=== PATIENT | male | born 1950 | race Caucasian/White ===

== ENCOUNTER 2018-04-22 10:09 | Emergency (ER) | payer MEDICARE ==
--- NOTE | 2018-04-22 11:49 | UC ---
Hip/Pelvis Pain - HPI Summary HPI Summary: 67 y/o male presents to the urgent care c/o Left hip pain w/ B/l lower leg swelling for the past week. Pain is dull constant, 8/10 w/ radiation to the left thigh, worse upon standing and better w/ sitting. Pt reports Hx of 3 back surgeries in the past due spinal stenosis in 1979. He has been taking Ibuprofen PO prn to alleviate symptoms. Last dose taken around 1000AM. Pt usually walk w/ help of a cane due to his back surgeries. Pt c/o L hip pain, constant, dull, that started 1 week ago, unsure if any trauma to site. Also, c/o L leg swelling that started 1 week ago. More comfortable sitting. - History Of Current Complaint Chief Complaint: UCLowerExtremity Stated Complaint: L HIP PAIN Time Seen by Provider: 04/22/18 11:41 Hx Obtained From: Patient Onset/Duration: Gradual Onset, Lasting Weeks - 2 weeks, Still Present, Worse Since - last week Timing: Constant - dull aching Severity Initially: Mild Severity Currently: Moderate Pain Intensity: 8 Pain Scale Used: 0-10 Numeric Location: Discrete At: - left posterior side of hip, Radiates To: - lower left leg at times Character Of Pain: Dull Aggravating Factor(s): Weight Bearing, Other - walking Alleviating Factor(s): Rest, OTC Medications Associated Signs And Symptoms: Positive: Swelling - B/L leg swelling, Other - tinglin of lower foot at times. Negative: Redness, Bruising, Fever, Weakness, Dizziness, Abdominal Pain, Knee Pain - Risk Factors Septic Arthritis Risk Factor: Negative - Allergies/Home Medications Allergies/Adverse Reactions: Allergies Allergy/AdvReac Type Severity Reaction Status Date / Time No Known Allergies Allergy Verified 04/22/18 10:24 Home Medications: Home Medications Multivit-Min/Iron Fum/Folic AC [Multi Vitamin and Mineral] 1 tab PO DAILY [History Confirmed 04/22/18] PMH/Surg Hx/FS Hx/Imm Hx Previously Healthy: Yes Other Neurological History: Chronic back pain s/p 3 back surgeries - Surgical History Surgical History: Yes Surgery Procedure, Year, and Place: 3 back surgeries 1985,,89. R knee ACL reconstruction - Family History Known Family History: Positive: Hypertension - Social History Occupation: Retired Lives: With Family Alcohol Use: None Substance Use Type: None Smoking Status (MU): Heavy Every Day Tobacco Smoker Amount Used/How Often: 1/2-1PPD Review of Systems Constitutional: Negative Skin: Negative Eyes: Negative ENT: Negative Respiratory: Negative Cardiovascular: Negative Gastrointestinal: Negative Genitourinary: Negative Motor: Negative Neurovascular: Negative Musculoskeletal: Decreased ROM - hip, Edema - B/L lower leg LF>Rt, Other: - left hip pain Neurological: Negative Psychological: Negative Is Patient Immunocompromised?: No All Other Systems Reviewed And Are Negative: Yes Physical Exam - Summary Physical Exam Summary: Vital Signs Reviewed: Yes Appearance: Well-Appearing,well nourished male sitting in the wheel chair w/o any apparent pain Distress, Eyes: Positive: Conjunctiva Clear - left eye blindness ENT: Positive: Normal ENT inspection, Hearing grossly normal, Pharynx normal, TMs normal, Uvula midline Neck: Positive: Supple, Nontender, No Lymphadenopathy Respiratory: Positive: Chest non-tender, Lungs clear, Normal breath sounds, No respiratory distress Cardiovascular: Positive: RRR, No Murmur, Pulses Normal, Brisk Capillary Refill Abdomen Description: Positive: Nontender, No Organomegaly, Soft. Negative: CVA Tenderness (R), CVA Tenderness (L) Bowel Sounds: Positive: Present Musculoskeletal: Positive: Strength Intact, LF Hip: Pt is able to ambulate with mild limp, . No surface trauma, ecchymosis. No erythema, warmth. No deformity, crepitus, or obvious asymmetry of the LF hip. No Tenderness to palpation over the symphysis pubis, ischial bone, trochanter, SI notch, buttocks, quadriceps, femoral triangle, inguinal ligament. Point tenderness on Rt lateral side of the hip below the iliac crest. there is a movable mass probably w/ mild vascularization on the lateral side of the hip, non tender to palpation, No inguinal lymphadenopathy. FROM limited due to pain. Distal motor and neurovascular status are intact. Neuro: Alert and oriented x 3. No acute neurological deficits. Speech is normal. Psychological: WNL Skin: Dry and warm Triage Information Reviewed: Yes Vital Signs: Initial Vital Signs Temp 99.4 F 04/22/18 10:25 Pulse 75 04/22/18 10:25 Resp 18 04/22/18 10:25 BP 131/75 04/22/18 10:25 Pulse Ox 98 04/22/18 10:25 Hip Injury Course/Dx - Differential Dx/Diagnosis Differential Diagnosis/HQI/PQRI: Arthritis, Contusion, Sciatica, Sprain, Strain Provider Diagnoses: 1- Acute left hip pain. 2- B/L hip osteoarthritis and scraoilitis. 3- Soft tissue mass on the left hip. 4- Elevated BP w/o Hx of HTN Discharge - Sign-Out/Discharge Documenting (check all that apply): Patient Departure All imaging exams completed and their final reports reviewed: Yes - Discharge Plan Condition: Stable Disposition: HOME Prescriptions: Naproxen TAB* [Naprosyn 250 mg TAB*] 250 mg PO Q8H PRN #30 tab PRN Reason: Pain Patient Education Materials: Osteoarthritis (ED), Low-Sodium Diet (ED), Edema ( ED) Referrals: Alicia Bazan MD [Primary Care Provider] - 2 Days Susie Feng MD [Medical Doctor] - 2 Days Additional Instructions: 1- Please take Naproxen PO as directed after meals for pain. 2- . Avoid strenuous exercise or heavy lifting. 3- Please follow up with Orthopedic Dr Dr Feng in 2-3 days for further management on your hip pain. 4- Please f/u w/ your PCP for further management on you B/L leg edema and the left hip soft tissue mass. 5-Your BP is elevated today. please decrease salt in your diet, monitor BP and if it continues to be elevated please f/u with your PCP for further management - Billing Disposition and Condition Condition: STABLE Disposition: Home
[2018-04-22 12:42] VITALS: BP 146/74
--- NOTE | 2018-04-22 12:42 | RAD ---
INDICATION: Acute left hip pain. COMPARISON: There are no relevant prior studies available for comparison. TECHNIQUE: An AP view of the pelvis and frontal and lateral views of the left hip were obtained. FINDINGS: The bones are in normal alignment. No fracture is seen. There is mild to moderate bilateral osteoarthritic change in the hips. There is also sclerotic change in both sacroiliac joints right greater than left. IMPRESSION: 1. MILD TO MODERATE BILATERAL OSTEOARTHRITIC CHANGE IN THE HIPS. 2. BILATERAL SACROILIITIS.
== END 2018-04-22 13:04 | disposition home or self-care (01) ==
LOC: UCEAST 10:09
DX: M25.552 Pain in left hip (principal); M16.0 Bilateral primary osteoarthritis of hip; M46.1 Sacroiliitis, not elsewhere classified; M79.9 Soft tissue disorder, unspecified; R03.0 Elevated blood-pressure reading, without diagnosis of hypertension; F17.210 Nicotine dependence, cigarettes, uncomplicated
CPT/HCPCS: 99202; G0463

== ENCOUNTER 2021-09-18 16:23 | Inpatient (IN) ==
[2021-09-18 18:23] LABS: ABS Basophils 0.1 10^3/ul (0-0.2); ABS Lymphocytes 1.3 10^3/ul (1.0-4.8); ABS Monocytes 1.4 10^3/ul (0-0.8); ABS Neutrophils 9.4 10^3/ul (1.5-7.7); Eosinophil % 0.2 %; Hematocrit 24 % (42-52); Hemoglobin 8.1 g/dL (14.0-18.0); Lymphocyte % 10.4 %; Mean Corpuscular HGB Conc 34 g/dL (31-36); Mean Corpuscular Hemoglobin 28 pg (27-31); Mean Corpuscular Volume 81 fL (80-94); Mean Platelet Volume 7.3 fL (7.4-10.4); Platelet Count 536 10^3/uL (150-450); Red Blood Count 2.91 10^6 /uL (4.18-5.48); Red Cell Distribution Width 15 % (10-15); White Blood Count 12.1 10^3/uL (3.5-10.8)
[2021-09-18 19:06] LABS: Albumin 3.2 g/dL (3.2-5.2); Albumin/Globulin Ratio 1.1 (1-3); Calcium 8.6 mg/dL (8.6-10.3); Globulin 2.9 g/dL (2-4); Total Bilirubin 0.5 mg/dL (0.2-1.0); Total Protein 6.1 g/dL (6.4-8.9); eGFR CKD-EPI 29.9 (>60)
[2021-09-18 19:11] LABS: Potassium 6.4 mmol/L (3.5-5.0)
[2021-09-18] MEDS ORDERED: SODIUM ZIRCONIUM CYCLOSILICATE 10 GM PACKET PO ONE (20:07)
[2021-09-18] MEDS ORDERED: Dextrose 50% VIAL 50 ml IV PRN (20:07)
[2021-09-18 20:20] LABS: Urine Appearance Cloudy; Urine Bacteria Absent (Absent); Urine Bilirubin Negative (Negative); Urine Blood 2+ (Negative); Urine Glucose Negative (Negative); Urine Ketones Trace (Negative); Urine Nitrite Negative (Negative); Urine Protein 1+(30 mg/dL) (Negative); Urine Red Blood Cell 3+(>10/hpf) (Absent); Urine Specific Gravity 1.014 (1.002-1.030); Urine Urobilinogen Negative (Negative); Urine White Blood Cell Absent (Absent)
[2021-09-18 21:06] LABS: Urine Color Amber
[2021-09-18 23:50] LABS: Calcium 8.4 mg/dL (8.6-10.3); eGFR CKD-EPI 29.6 (>60)
[2021-09-18 23:52] LABS: Potassium 5.9 mmol/L (3.5-5.0)
[2021-09-19] MEDS ORDERED: NS 0.9% 100 ml BAG 100 ML IV ONE ×3 (00:13→04:13)
[2021-09-19 05:58] LABS: ABS Eosinophils 0.1 10^3/ul (0-0.6); ABS Lymphocytes 1.5 10^3/ul (1.0-4.8); ABS Monocytes 1.4 10^3/ul (0-0.8); ABS Neutrophils 7.6 10^3/ul (1.5-7.7); Eosinophil % 0.5 %; Hematocrit 23 % (42-52); Hemoglobin 7.6 g/dL (14.0-18.0); Mean Corpuscular HGB Conc 33 g/dL (31-36); Mean Corpuscular Hemoglobin 27 pg (27-31); Mean Corpuscular Volume 82 fL (80-94); Mean Platelet Volume 7.4 fL (7.4-10.4); Nucleated Red Blood Cells % 0.1; Platelet Count 506 10^3/uL (150-450); Red Blood Count 2.82 10^6 /uL (4.18-5.48); Red Cell Distribution Width 15 % (10-15); White Blood Count 10.6 10^3/uL (3.5-10.8)
[2021-09-19 06:19] LABS: Calcium 8.4 mg/dL (8.6-10.3); Magnesium 2.8 mg/dL (1.9-2.7); eGFR CKD-EPI 29.2 (>60)
[2021-09-19 06:31] LABS: Potassium 6.2 mmol/L (3.5-5.0)
[2021-09-19] MEDS ORDERED: SODIUM ZIRCONIUM CYCLOSILICATE 10 GM PACKET PO ONE (06:58)
[2021-09-19] MEDS ORDERED: NS 0.9% 250 ml 250 ML IV SCH (07:00)
[2021-09-19] MEDS ORDERED: Dextrose 50% Syringe 50 ml 25 GM/50 ML SYRINGE IV PUSH ONE (07:02)
[2021-09-19] MEDS ORDERED: CALCIUM GLUCONATE 1GM/50ML NS 1 GM/50 ML BAG IV ONE (07:57)
[2021-09-19] MEDS ORDERED: cefTRIAXone 1 gm/50 mL NS BAG 1 GM/50 ML BAG IVPB SCH (08:30)
[2021-09-19] MEDS ORDERED: NS 0.9% 1000 ml BAG 1,000 ML IV SCH ×2 (08:30→18:30)
[2021-09-19 08:31] LABS: C Reactive Protein 79.96 mg/L (<8.01)
[2021-09-19 09:17] LABS: Hematocrit 24 % (42-52); Hemoglobin 7.8 g/dL (14.0-18.0); Mean Corpuscular HGB Conc 33 g/dL (31-36); Mean Corpuscular Hemoglobin 27 pg (27-31); Mean Corpuscular Volume 81 fL (80-94); Mean Platelet Volume 7.2 fL (7.4-10.4); Platelet Count 507 10^3/uL (150-450); Red Blood Count 2.91 10^6 /uL (4.18-5.48); Red Cell Distribution Width 15 % (10-15); White Blood Count 10.5 10^3/uL (3.5-10.8)
[2021-09-19 09:25] LABS: INR 1.63 (0.86-1.15)
[2021-09-19 10:02] LABS: Calcium 8.4 mg/dL (8.6-10.3); eGFR CKD-EPI 32.3 (>60)
[2021-09-19 10:07] LABS: Potassium 5.2 mmol/L (3.5-5.0)
[2021-09-19 15:12] VITALS: BP 99/61
[2021-09-19] MEDS ORDERED: Albuterol 2.5mg/3 ml (0.083%) NEB.SOLN INH PRN (16:07)
[2021-09-19] MEDS ORDERED: Piperacillin/Tazobac ADVAN 3.375 GM in NS 0.9% 100 ml BAG 100 ML IV ONE (16:30)
[2021-09-19] MEDS ORDERED: Linezolid 600 MG IVPREMIX(*) 600 MG/300 ML BAG IVPB SCH (17:00)
[2021-09-19] MEDS ORDERED: Zosyn per Pharmacy NOTE FOLLOW UP SCH (17:00)
[2021-09-19] MEDS ORDERED: ZOSYN 3.375 GM Q8H per EXTENDED INFUSION IV SCH (22:00)
== END 2021-09-19 19:54 | disposition short-term general hospital (02) | DRG 316 ==
LOC: ED 16:23 → EDHOLD 22:19 → SUATTDRO 22:19 → MEDTELE 09-19 00:45
PROVIDERS: ADMIT Hospitalist; ATTEND Internal Medicine

== ENCOUNTER 2022-04-26 09:36 | Inpatient (IN) ==
[2022-04-26] MEDS ORDERED: NS 0.9% 1000 ml BAG 1,000 ML IV ONE (09:54)
[2022-04-26 10:15] LABS: ABS Basophils 0.1 10^3/ul (0-0.2); ABS Eosinophils 0.1 10^3/ul (0-0.6); ABS Monocytes 0.4 10^3/ul (0-0.8); ABS Neutrophils 9.7 10^3/ul (1.5-7.7); Eosinophil % 0.7 %; Hematocrit 34 % (42-52); Hemoglobin 10.5 g/dL (14.0-18.0); Lymphocyte % 9.1 %; Mean Corpuscular HGB Conc 31 g/dL (31-36); Mean Corpuscular Hemoglobin 29 pg (27-31); Mean Corpuscular Volume 94 fL (80-94); Mean Platelet Volume 8.6 fL (7.4-10.4); Platelet Count 225 10^3/uL (150-450); Red Blood Count 3.61 10^6 /uL (4.18-5.48); Red Cell Distribution Width 18 % (10-15); White Blood Count 11.3 10^3/uL (3.5-10.8)
[2022-04-26 10:16] LABS: Venous Bicarbonate HCO3 11.3 mmol/L (24-28)
[2022-04-26] MEDS: NORMOSOL-R pH 7.4 1000 mL BAG 1,000 ML IV SCH ×2 (10:18→11:55)
[2022-04-26] MEDS ORDERED: Insulin Infusion 100unit/100mL 100 UNIT/100 ML BAG IV ONE (10:42)
[2022-04-26] MEDS ORDERED: Dextrose 50% Syringe 50 ml 25 GM/50 ML SYRINGE IV PUSH PRN ×2 (10:42→11:29)
[2022-04-26] MEDS ORDERED: Piperacillin/Tazobac ADVAN 3.375 GM in NS 0.9% 100 ml BAG 100 ML IV ONE ×2 (10:44→16:26)
[2022-04-26 10:48] LABS: PCO2 Arterial 24 mmHg (35-45); PO2 Arterial 94 mmHg (80-100)
[2022-04-26] MEDS ORDERED: NORMOSOL-R pH 7.4 1000 mL BAG 1,000 ML IV SCH ×3 (11:00→14:17)
[2022-04-26 11:04] LABS: Albumin 3.5 g/dL (3.2-5.2); Albumin/Globulin Ratio 1.1 (1-3); Calcium 9.8 mg/dL (8.6-10.3); Globulin 3.2 g/dL (2-4); Magnesium 2.4 mg/dL (1.9-2.7); Total Bilirubin 0.5 mg/dL (0.2-1.0); Total Protein 6.7 g/dL (6.4-8.9)
[2022-04-26 11:10] LABS: Potassium 5.4 mmol/L (3.5-5.0)
[2022-04-26 11:17] LABS: Phosphorus 5.1 mg/dL (2.5-5.0)
[2022-04-26] MEDS ORDERED: NORMOSOL-R pH 7.4 1000 mL BAG 1,000 ML IV ONE (11:29)
[2022-04-26 11:31] LABS: TSH Ultra Thyroid Stim Horm 2.11 mcIU/mL (0.34-5.60)
[2022-04-26 11:45] LABS: Urine Appearance Turbid; Urine Bilirubin Negative (Negative); Urine Blood 2+ (Negative); Urine Color Yellow; Urine Glucose 3+(>=500 mg/dL) (Negative); Urine Ketones 1+ (Negative); Urine Nitrite Negative (Negative); Urine Protein 3+(>=500 mg/dL) (Negative); Urine Specific Gravity 1.018 (1.002-1.030); Urine Urobilinogen Negative (Negative)
[2022-04-26 11:57] LABS: Urine Bacteria 1+ (Absent); Urine Red Blood Cell 3+(>10/hpf) (Absent); Urine White Blood Cell 3+(>20/hpf) (Absent)
[2022-04-26] MEDS ORDERED: Insulin Infusion 100unit/100mL 100 UNIT/100 ML BAG IV SCH (12:00)
[2022-04-26] MEDS ORDERED: D5W 1/2 NS 1000 ml BAG 1,000 ML IV SCH (12:00)
[2022-04-26 12:41] LABS: High Sensitivity Troponin 1 Hr 11 pg/mL (<20)
[2022-04-26 13:00] LABS: Calcium 9.1 mg/dL (8.6-10.3); Magnesium 2.4 mg/dL (1.9-2.7); Phosphorus 5.1 mg/dL (2.5-5.0); eGFR CKD-EPI 35.4 (>60)
[2022-04-26 13:04] LABS: Potassium 5.7 mmol/L (3.5-5.0)
[2022-04-26] MEDS ORDERED: Albuterol 2.5mg/3 ml (0.083%) NEB.SOLN INH PRN (13:44)
[2022-04-26 14:38] LABS: Calcium 7.2 mg/dL (8.6-10.3); Magnesium 1.9 mg/dL (1.9-2.7); Phosphorus 3.6 mg/dL (2.5-5.0); Potassium 3.7 mmol/L (3.5-5.0); eGFR CKD-EPI 43.8 (>60)
[2022-04-26 14:48] LABS: Osmolality Serum 332 mOsm/kg (275-295)
[2022-04-26] MEDS ORDERED: KCL 10 MEQ/50 ML IVPREMIX 10 MEQ/50 ML BAG IV SCH (14:49)
[2022-04-26 14:55] LABS: Insulin 0.7 mcIU/mL (2.0-16.0)
[2022-04-26] MEDS ORDERED: KCL 20 MEQ/100 ML IVPREMIX 20 MEQ/100 ML BAG ONE (14:55)
[2022-04-26] MEDS ORDERED: KCL 20 MEQ/100 ML IVPREMIX 20 MEQ/100 ML BAG IV ONE (15:06)
[2022-04-26] MEDS: Norepinephrine 16MCG/ML BAGD5W 4,000 MCG/250 ML BAG IV SCH (15:08)
[2022-04-26 15:41] LABS: Glucose Confirmatory 425 mg/dL (70-100)
[2022-04-26] MEDS ORDERED: Zosyn per Pharmacy NOTE FOLLOW UP SCH (17:00)
[2022-04-26] MEDS: ZOSYN 3.375 GM Q8H per EXTENDED INFUSION IV SCH (17:23)
[2022-04-26] MEDS: D5W 1/2 NS 40 Meq KCL 1000 ml 1,000 ML IV SCH (17:53)
[2022-04-26 19:07] LABS: Magnesium 2.2 mg/dL (1.9-2.7); Potassium 4.8 mmol/L (3.5-5.0)
[2022-04-26 23:14] LABS: Calcium 8.9 mg/dL (8.6-10.3); Magnesium 2.2 mg/dL (1.9-2.7); Phosphorus 2.8 mg/dL (2.5-5.0); eGFR CKD-EPI 35.4 (>60)
[2022-04-27] MEDS: ZOSYN 3.375 GM Q8H per EXTENDED INFUSION IV SCH ×3 (01:33→18:23)
[2022-04-27] MEDS: Norepinephrine 16MCG/ML BAGD5W 4,000 MCG/250 ML BAG IV SCH (02:10)
[2022-04-27 03:48] LABS: ABS Eosinophils 0.5 10^3/ul (0-0.6); ABS Lymphocytes 1.3 10^3/ul (1.0-4.8); ABS Monocytes 0.7 10^3/ul (0-0.8); ABS Neutrophils 10.9 10^3/ul (1.5-7.7); Eosinophil % 3.9 %; Hematocrit 30 % (42-52); Hemoglobin 9.7 g/dL (14.0-18.0); Lymphocyte % 9.7 %; Mean Corpuscular HGB Conc 33 g/dL (31-36); Mean Corpuscular Hemoglobin 28 pg (27-31); Mean Corpuscular Volume 87 fL (80-94); Platelet Count 199 10^3/uL (150-450); Red Blood Count 3.43 10^6 /uL (4.18-5.48); Red Cell Distribution Width 18 % (10-15); White Blood Count 13.5 10^3/uL (3.5-10.8)
[2022-04-27] MEDS: D5W 1/2 NS 40 Meq KCL 1000 ml 1,000 ML IV SCH (04:09)
[2022-04-27 04:13] LABS: Albumin/Globulin Ratio 1.2 (1-3); Calcium 8.9 mg/dL (8.6-10.3); Globulin 2.6 g/dL (2-4); HDL Cholesterol 29.8 mg/dL; Magnesium 2.2 mg/dL (1.9-2.7); Phosphorus 2.6 mg/dL (2.5-5.0); Total Bilirubin 0.5 mg/dL (0.2-1.0); Total Protein 5.6 g/dL (6.4-8.9)
[2022-04-27 04:14] LABS: Potassium 5.2 mmol/L (3.5-5.0)
[2022-04-27 04:15] LABS: Potassium 5.2 mmol/L (3.5-5.0)
[2022-04-27] MEDS ORDERED: Insulin GLARGINE 100 un/ml 10 ml VIAL SUBCUT ONE ×2 (04:19→11:00)
[2022-04-27] MEDS: NORMOSOL-R pH 7.4 1000 mL BAG 1,000 ML IV SCH ×2 (04:45→14:51)
[2022-04-27] MEDS ORDERED: Dextrose 50% Syringe 50 ml 25 GM/50 ML SYRINGE IV PUSH PRN ×2 (05:44→11:01)
[2022-04-27] MEDS ORDERED: NORMOSOL-R pH 7.4 1000 mL BAG 1,000 ML IV ONE (11:45)
[2022-04-27] MEDS ORDERED: Norepinephrine 16MCG/ML BAGD5W 4,000 MCG/250 ML BAG IV SCH (12:00)
[2022-04-27] MEDS ORDERED: Perflutren Lipid Microsphere 3 ML VIAL ONE (14:25)
[2022-04-27] MEDS ORDERED: Insulin GLARGINE 100 un/ml 10 ml VIAL SUBCUT SCH ×3 (21:00)
[2022-04-28] MEDS: ZOSYN 3.375 GM Q8H per EXTENDED INFUSION IV SCH ×2 (00:52→09:18)
[2022-04-28] MEDS: NORMOSOL-R pH 7.4 1000 mL BAG 1,000 ML IV SCH (00:58)
[2022-04-28 03:46] LABS: ABS Eosinophils 0.3 10^3/ul (0-0.6); ABS Lymphocytes 1.3 10^3/ul (1.0-4.8); ABS Monocytes 0.6 10^3/ul (0-0.8); ABS Neutrophils 7.7 10^3/ul (1.5-7.7); Eosinophil % 2.6 %; Hematocrit 28 % (42-52); Lymphocyte % 13.2 %; Mean Corpuscular HGB Conc 32 g/dL (31-36); Mean Corpuscular Hemoglobin 28 pg (27-31); Mean Corpuscular Volume 87 fL (80-94); Mean Platelet Volume 7.7 fL (7.4-10.4); Platelet Count 176 10^3/uL (150-450); Red Blood Count 3.21 10^6 /uL (4.18-5.48); Red Cell Distribution Width 18 % (10-15); White Blood Count 9.8 10^3/uL (3.5-10.8)
[2022-04-28 04:22] LABS: Albumin 2.7 g/dL (3.2-5.2); Calcium 8.6 mg/dL (8.6-10.3); Potassium 4.1 mmol/L (3.5-5.0); Total Bilirubin 0.4 mg/dL (0.2-1.0)
[2022-04-28 04:28] LABS: Albumin/Globulin Ratio 1.2 (1-3); C Reactive Protein 43.35 mg/L (<8.01); Globulin 2.3 g/dL (2-4); eGFR CKD-EPI 52.1 (>60)
[2022-04-28] MEDS ORDERED: Insulin GLARGINE 100 un/ml 10 ml VIAL SUBCUT SCH (09:00)
[2022-04-28] MEDS ORDERED: Metoprolol Tartrate 5 mg VIAL 5 ml VIAL (1 mg/ml) IV PRN (19:03)
[2022-04-29 05:31] LABS: ABS Eosinophils 0.4 10^3/ul (0-0.6); ABS Lymphocytes 1.2 10^3/ul (1.0-4.8); ABS Monocytes 0.6 10^3/ul (0-0.8); ABS Neutrophils 5.7 10^3/ul (1.5-7.7); Eosinophil % 4.6 %; Hematocrit 27 % (42-52); Hemoglobin 8.9 g/dL (14.0-18.0); Lymphocyte % 15.5 %; Mean Corpuscular HGB Conc 33 g/dL (31-36); Mean Corpuscular Hemoglobin 29 pg (27-31); Mean Corpuscular Volume 88 fL (80-94); Mean Platelet Volume 7.8 fL (7.4-10.4); Platelet Count 159 10^3/uL (150-450); Red Blood Count 3.08 10^6 /uL (4.18-5.48); Red Cell Distribution Width 18 % (10-15); White Blood Count 7.8 10^3/uL (3.5-10.8)
[2022-04-29 06:05] LABS: Albumin 2.6 g/dL (3.2-5.2); CO2 Carbon Dioxide 26 mmol/L (22-32); Calcium 8.6 mg/dL (8.6-10.3); Chloride 106 mmol/L (101-111); Sodium 136 mmol/L (135-145)
[2022-04-29 06:11] LABS: ALT 9 U/L (7-52); Alkaline Phosphatase 79 U/L (35-149); Blood Urea Nitrogen 17 mg/dL (6-24); Globulin 2.5 g/dL (2-4); Glucose 72 mg/dL (70-100); Total Protein 5.1 g/dL (6.4-8.9); eGFR CKD-EPI 56.3 (>60)
[2022-04-29 06:15] LABS: Anion Gap 4 mmol/L (2-11)
[2022-04-29 07:27] LABS: Potassium Redraw 4.3 mmol/L (3.5-5.0)
[2022-04-29] MEDS ORDERED: Metoprolol Tartrate 5 mg VIAL 5 ml VIAL (1 mg/ml) IV PRN (07:29)
[2022-04-29] MEDS: Insulin GLARGINE 100 un/ml 10 ml VIAL SUBCUT SCH (09:25)
[2022-04-29] MEDS ORDERED: Dextrose 50% Syringe 50 ml 25 GM/50 ML SYRINGE IV PUSH PRN (13:30)
[2022-04-30] MEDS ORDERED: Nystatin TOP POWDER 15 GM BTL TOPICAL SCH (09:00)
[2022-04-30] MEDS: Insulin GLARGINE 100 un/ml 10 ml VIAL SUBCUT SCH (09:09)
[2022-04-30 11:31] VITALS: BP 107/71
[2022-05-04 08:48] LABS: Anti GAD 65 Antibody 0.15 nmol/L (<= 0.02); Zinc Transporter 8 (ZnT8) Ab 17.3 U/mL (<15.0)
== END 2022-04-30 16:00 | disposition home or self-care (01) | DRG 637 ==
LOC: ED 09:36 → EDHOLD 11:24 → ICU 14:44 → MED 04-29 22:25
PROVIDERS: ADMIT Internal Medicine; ATTEND Internal Medicine

== ENCOUNTER 2022-05-02 07:14 | Inpatient (IN) ==
[2022-05-02] MEDS ORDERED: MULTIPLE ELECTROLYTES IV ONE (07:34)
[2022-05-02] MEDS ORDERED: Piperacillin/Tazobac ADVAN 3.375 GM in NS 0.9% 100 ml BAG 100 ML IV ONE (07:34)
[2022-05-02] MEDS ORDERED: Dextrose 50% Syringe 50 ml 25 GM/50 ML SYRINGE IV PUSH PRN ×2 (07:46→08:38)
[2022-05-02] MEDS ORDERED: Insulin Infusion 100unit/100mL 100 UNIT/100 ML BAG IV ONE (07:46)
[2022-05-02 08:09] LABS: ABS Eosinophils 0.1 10^3/ul (0-0.6); ABS Lymphocytes 0.9 10^3/ul (1.0-4.8); ABS Monocytes 0.4 10^3/ul (0-0.8); ABS Neutrophils 6.7 10^3/ul (1.5-7.7); Eosinophil % 0.9 %; Hematocrit 31 % (42-52); Hemoglobin 9.5 g/dL (14.0-18.0); Lymphocyte % 11.4 %; Mean Corpuscular HGB Conc 31 g/dL (31-36); Mean Corpuscular Hemoglobin 29 pg (27-31); Mean Corpuscular Volume 95 fL (80-94); Mean Platelet Volume 8.4 fL (7.4-10.4); Platelet Count 238 10^3/uL (150-450); Red Blood Count 3.23 10^6 /uL (4.18-5.48); Red Cell Distribution Width 18 % (10-15); White Blood Count 8.2 10^3/uL (3.5-10.8)
[2022-05-02 08:09] LABS: Venous Bicarbonate HCO3 10.8 mmol/L (24-28)
[2022-05-02] MEDS ORDERED: NORMOSOL-R pH 7.4 1000 mL BAG 1,000 ML IV ONE ×2 (08:38→08:55)
[2022-05-02 08:39] LABS: Urine Appearance Turbid; Urine Bilirubin Negative (Negative); Urine Blood 3+ (Negative); Urine Color Yellow; Urine Glucose 3+(>=500 mg/dL) (Negative); Urine Ketones 2+ (Negative); Urine Nitrite Negative (Negative); Urine Protein 3+(>=500 mg/dL) (Negative); Urine Specific Gravity 1.017 (1.002-1.030); Urine Urobilinogen Negative (Negative)
[2022-05-02 08:40] LABS: Activated Partial Thrombo Time 36.6 seconds (26.0-38.0); INR 1.84 (0.89-1.11)
[2022-05-02 08:53] LABS: Albumin 2.9 g/dL (3.2-5.2); C Reactive Protein 97.31 mg/L (<8.01); Calcium 9.2 mg/dL (8.6-10.3); Globulin 2.9 g/dL (2-4); Total Bilirubin 0.4 mg/dL (0.2-1.0); Total Protein 5.8 g/dL (6.4-8.9); eGFR CKD-EPI 37.5 (>60)
[2022-05-02 08:56] LABS: Urine Bacteria Absent (Absent); Urine Granular Casts Present (Absent); Urine Red Blood Cell 3+(>10/hpf) (Absent); Urine White Blood Cell 3+(>20/hpf) (Absent)
[2022-05-02 08:59] LABS: Potassium 5.4 mmol/L (3.5-5.0)
[2022-05-02] MEDS ORDERED: Norepinephrine 16MCG/ML BAG NS 4,000 MCG/250 ML BAG IV SCH ×2 (09:00)
[2022-05-02] MEDS: NORMOSOL-R pH 7.4 1000 mL BAG 1,000 ML IV SCH ×3 (10:22→21:33)
[2022-05-02] MEDS: Insulin Infusion 100unit/100mL 100 UNIT/100 ML BAG IV SCH ×2 (10:49→18:44)
[2022-05-02] MEDS ORDERED: Zosyn per Pharmacy NOTE FOLLOW UP SCH (11:00)
[2022-05-02 12:27] LABS: ABS Lymphocytes 0.4 10^3/ul (1.0-4.8); ABS Monocytes 0.2 10^3/ul (0-0.8); ABS Neutrophils 6.4 10^3/ul (1.5-7.7); Eosinophil % 0.1 %; Hematocrit 29 % (42-52); Hemoglobin 9.2 g/dL (14.0-18.0); Lymphocyte % 5.3 %; Mean Corpuscular HGB Conc 31 g/dL (31-36); Mean Corpuscular Hemoglobin 28 pg (27-31); Mean Corpuscular Volume 91 fL (80-94); Mean Platelet Volume 7.9 fL (7.4-10.4); Platelet Count 232 10^3/uL (150-450); Red Blood Count 3.24 10^6 /uL (4.18-5.48); Red Cell Distribution Width 18 % (10-15)
[2022-05-02] MEDS: ZOSYN 3.375 GM Q8H per EXTENDED INFUSION IV SCH ×2 (12:32→19:56)
[2022-05-02 13:07] LABS: Calcium 8.4 mg/dL (8.6-10.3); Phosphorus 3.6 mg/dL (2.5-5.0); Potassium 4.5 mmol/L (3.5-5.0); eGFR CKD-EPI 39.5 (>60)
[2022-05-02 13:40] LABS: Glucose Confirmatory 497 mg/dL (70-100)
[2022-05-02 13:56] LABS: TSH Ultra Thyroid Stim Horm 1.23 mcIU/mL (0.34-5.60)
[2022-05-02] MEDS ORDERED: Albuterol 2.5mg/3 ml (0.083%) NEB.SOLN INH PRN (14:21)
[2022-05-02 14:33] LABS: Glucose Confirmatory 462 mg/dL (70-100)
[2022-05-02 15:28] LABS: Glucose Confirmatory 420 mg/dL (70-100)
[2022-05-02 17:03] LABS: Calcium 8.3 mg/dL (8.6-10.3); Magnesium 1.9 mg/dL (1.9-2.7); Phosphorus 2.8 mg/dL (2.5-5.0); Potassium 4.2 mmol/L (3.5-5.0); eGFR CKD-EPI 44.5 (>60)
[2022-05-02 21:00] LABS: Calcium 8.5 mg/dL (8.6-10.3); Magnesium 1.9 mg/dL (1.9-2.7); Phosphorus 2.4 mg/dL (2.5-5.0); Potassium 3.9 mmol/L (3.5-5.0); eGFR CKD-EPI 46.2 (>60)
[2022-05-02] MEDS ORDERED: Insulin GLARGINE 100 un/ml 10 ml VIAL SUBCUT ONE (21:20)
[2022-05-03 00:54] LABS: Urine Appearance Cloudy; Urine Bilirubin Negative (Negative); Urine Blood 3+ (Negative); Urine Color Yellow; Urine Glucose 3+(>=500 mg/dL) (Negative); Urine Ketones 1+ (Negative); Urine Nitrite Negative (Negative); Urine Protein 2+(100 mg/dL) (Negative); Urine Specific Gravity 1.013 (1.002-1.030); Urine Urobilinogen Negative (Negative)
[2022-05-03 00:58] LABS: Urine Bacteria Absent (Absent); Urine Red Blood Cell 3+(>10/hpf) (Absent); Urine White Blood Cell 3+(>20/hpf) (Absent)
[2022-05-03 01:36] LABS: Calcium 8.7 mg/dL (8.6-10.3); Potassium 4.5 mmol/L (3.5-5.0); eGFR CKD-EPI 47.6 (>60)
[2022-05-03] MEDS: ZOSYN 3.375 GM Q8H per EXTENDED INFUSION IV SCH ×3 (03:35→20:08)
[2022-05-03] MEDS: NORMOSOL-R pH 7.4 1000 mL BAG 1,000 ML IV SCH (04:21)
[2022-05-03 05:04] LABS: Calcium 8.3 mg/dL (8.6-10.3); Magnesium 1.9 mg/dL (1.9-2.7); Phosphorus 2.9 mg/dL (2.5-5.0); Potassium 4.2 mmol/L (3.5-5.0); eGFR CKD-EPI 49.2 (>60)
[2022-05-03] MEDS: Polyethylene Glycol 3350 17 GM PACKET PO SCH (07:31)
[2022-05-03 09:49] LABS: Calcium 8.3 mg/dL (8.6-10.3); Magnesium 1.9 mg/dL (1.9-2.7); Phosphorus 2.7 mg/dL (2.5-5.0); Potassium 4.1 mmol/L (3.5-5.0); eGFR CKD-EPI 51.6 (>60)
[2022-05-03] MEDS ORDERED: Lactated Ringers 500 ml BAG 500 ML IV ONE (13:46)
[2022-05-03] MEDS ORDERED: Lactated Ringers 500 ml BAG 500 ML IV SCH (15:00)
[2022-05-03] MEDS: Lactated Ringers 1000 ml BAG 1,000 ML IV SCH (18:00)
[2022-05-03] MEDS ORDERED: Insulin GLARGINE 100 un/ml 10 ml VIAL SUBCUT SCH ×2 (21:00)
[2022-05-04] MEDS: ZOSYN 3.375 GM Q8H per EXTENDED INFUSION IV SCH (03:23)
[2022-05-04] MEDS: Lactated Ringers 1000 ml BAG 1,000 ML IV SCH ×2 (05:27→19:30)
[2022-05-04] MEDS: Polyethylene Glycol 3350 17 GM PACKET PO SCH (08:25)
[2022-05-04 09:18] LABS: Urine Appearance Turbid; Urine Bilirubin Negative (Negative); Urine Blood 2+ (Negative); Urine Color Yellow; Urine Glucose Negative (Negative); Urine Ketones Negative (Negative); Urine Nitrite Negative (Negative); Urine Protein 2+(100 mg/dL) (Negative); Urine Urobilinogen Negative (Negative)
[2022-05-04 09:39] LABS: ABS Eosinophils 0.3 10^3/ul (0-0.6); ABS Monocytes 0.5 10^3/ul (0-0.8); ABS Neutrophils 5.1 10^3/ul (1.5-7.7); Eosinophil % 4.9 %; Hematocrit 27 % (42-52); Lymphocyte % 14.8 %; Mean Corpuscular HGB Conc 33 g/dL (31-36); Mean Corpuscular Hemoglobin 29 pg (27-31); Mean Corpuscular Volume 87 fL (80-94); Mean Platelet Volume 7.6 fL (7.4-10.4); Platelet Count 222 10^3/uL (150-450); Red Blood Count 3.12 10^6 /uL (4.18-5.48); Red Cell Distribution Width 18 % (10-15); White Blood Count 7.1 10^3/uL (3.5-10.8)
[2022-05-04 09:40] LABS: Urine Bacteria 1+ (Absent); Urine Red Blood Cell 3+(>10/hpf) (Absent); Urine Squamous Epithelial Cell Present (Absent); Urine White Blood Cell 3+(>20/hpf) (Absent)
[2022-05-04 10:26] LABS: Calcium 8.2 mg/dL (8.6-10.3); Magnesium 1.8 mg/dL (1.9-2.7); Phosphorus 2.9 mg/dL (2.5-5.0); Potassium 4.1 mmol/L (3.5-5.0)
[2022-05-04] MEDS ORDERED: Dextrose 50% Syringe 50 ml 25 GM/50 ML SYRINGE IV PUSH PRN (12:07)
[2022-05-04] MEDS ORDERED: Piperacillin/Tazobac ADVAN 3.375 GM in NS 0.9% 100 ml BAG 100 ML IV ONE (12:16)
[2022-05-04] MEDS ORDERED: Magnesium Sulfate 2 gm BAG 2 GM/50 ML BAG IVPB ONE (13:07)
[2022-05-04] MEDS ORDERED: Insulin GLARGINE 100 un/ml 10 ml VIAL SUBCUT SCH ×3 (21:00)
[2022-05-05] MEDS: Polyethylene Glycol 3350 17 GM PACKET PO SCH ×2 (09:21→09:24)
[2022-05-05] MEDS: Lactated Ringers 1000 ml BAG 1,000 ML IV SCH (09:22)
[2022-05-05] MEDS ORDERED: Insulin GLARGINE 100 un/ml 10 ml VIAL SUBCUT SCH (21:00)
[2022-05-06 05:32] LABS: ABS Eosinophils 0.3 10^3/ul (0-0.6); ABS Lymphocytes 1.3 10^3/ul (1.0-4.8); ABS Monocytes 0.5 10^3/ul (0-0.8); ABS Neutrophils 3.5 10^3/ul (1.5-7.7); Eosinophil % 4.9 %; Hematocrit 25 % (42-52); Hemoglobin 8.3 g/dL (14.0-18.0); Lymphocyte % 23.5 %; Mean Corpuscular HGB Conc 34 g/dL (31-36); Mean Corpuscular Hemoglobin 30 pg (27-31); Mean Corpuscular Volume 88 fL (80-94); Mean Platelet Volume 7.7 fL (7.4-10.4); Platelet Count 230 10^3/uL (150-450); Red Blood Count 2.79 10^6 /uL (4.18-5.48); Red Cell Distribution Width 18 % (10-15); White Blood Count 5.7 10^3/uL (3.5-10.8)
[2022-05-06 06:23] LABS: Calcium 8.1 mg/dL (8.6-10.3); Potassium 4.5 mmol/L (3.5-5.0); eGFR CKD-EPI 47.6 (>60)
[2022-05-06] MEDS: Polyethylene Glycol 3350 17 GM PACKET PO SCH (08:47)
[2022-05-06 11:20] VITALS: BP 111/61
== END 2022-05-06 14:41 | disposition home or self-care (01) | DRG 871 ==
LOC: ED 07:14 → EDHOLD 08:31 → ICU 11:35
PROVIDERS: ADMIT Internal Medicine Critical Care Medicine; ATTEND Internal Medicine Critical Care Medicine

== ENCOUNTER 2022-06-28 18:27 | Inpatient (IN) ==
[2022-06-28 19:51] LABS: Urine Appearance Turbid; Urine Color Yellow
[2022-06-28 20:06] LABS: Urine Bilirubin Negative (Negative); Urine Blood 3+ (Large) (Negative); Urine Glucose Trace (100mg/dL) (Negative); Urine Ketones Negative (Negative); Urine Nitrite Negative (Negative); Urine Protein 2+ (100 mg/dL) (Negative); Urine Urobilinogen 0.2 (Negative) (Negative); Urine pH 5.5 (5.0-9.0)
[2022-06-28 20:16] LABS: Urine Bacteria Absent (Absent); Urine Red Blood Cell 3+(>10/hpf) (Absent); Urine White Blood Cell 3+(>20/hpf) (Absent); Urine Yeast Present (Absent)
[2022-06-28] MEDS ORDERED: NS 0.9% 1000 ml BAG 1,000 ML IV ONE ×2 (21:45→22:56)
[2022-06-28] MEDS ORDERED: cefTRIAXone 1 gm/50 mL D5W 1 GM/50 ML BAG IV ONE (21:45)
[2022-06-28 22:17] LABS: ABS Monocytes 1.3 10^3/ul (0-0.8); ABS Neutrophils 11.2 10^3/ul (1.5-7.7); Hematocrit 28 % (42-52); Hemoglobin 8.9 g/dL (14.0-18.0); Lymphocyte % 7.3 %; Mean Corpuscular HGB Conc 32 g/dL (31-36); Mean Corpuscular Hemoglobin 26 pg (27-31); Mean Corpuscular Volume 79 fL (80-94); Mean Platelet Volume 7.5 fL (7.4-10.4); Platelet Count 265 10^3/uL (150-450); Red Blood Count 3.48 10^6 /uL (4.18-5.48); Red Cell Distribution Width 19 % (10-15); White Blood Count 13.5 10^3/uL (3.5-10.8)
[2022-06-28 22:41] LABS: Albumin 2.9 g/dL (3.2-5.2); Albumin/Globulin Ratio 0.9 (1-3); Calcium 8.3 mg/dL (8.6-10.3); Globulin 3.1 g/dL (2-4); Total Bilirubin 0.7 mg/dL (0.2-1.0); eGFR CKD-EPI 26.5 (>60)
[2022-06-28 22:54] LABS: Potassium 5.4 mmol/L (3.5-5.0)
[2022-06-29] MEDS ORDERED: Albuterol/Ipratropium NEB.SOL (2.5/0.5 MG) 3 ML NEB.SOLN INH PRN (03:33)
[2022-06-29] MEDS ORDERED: SODIUM ZIRCONIUM CYCLOSILICATE 5 GM PACKET PO ONE (03:57)
[2022-06-29] MEDS ORDERED: Dextrose 50% Syringe 50 ml 25 GM/50 ML SYRINGE IV PUSH PRN (04:01)
[2022-06-29 04:07] LABS: Osmolality Serum 278 mOsm/kg (275-295)
[2022-06-29 04:37] LABS: ABS Lymphocytes 0.6 10^3/ul (1.0-4.8); ABS Monocytes 1.3 10^3/ul (0-0.8); ABS Neutrophils 10.9 10^3/ul (1.5-7.7); Hematocrit 26 % (42-52); Hemoglobin 8.6 g/dL (14.0-18.0); Lymphocyte % 4.3 %; Mean Corpuscular HGB Conc 33 g/dL (31-36); Mean Corpuscular Hemoglobin 26 pg (27-31); Mean Corpuscular Volume 79 fL (80-94); Mean Platelet Volume 7.4 fL (7.4-10.4); Platelet Count 243 10^3/uL (150-450); Red Blood Count 3.32 10^6 /uL (4.18-5.48); Red Cell Distribution Width 18 % (10-15); White Blood Count 12.8 10^3/uL (3.5-10.8)
[2022-06-29 04:58] LABS: Calcium 8.1 mg/dL (8.6-10.3); Potassium 5.6 mmol/L (3.5-5.0); eGFR CKD-EPI 27.6 (>60)
[2022-06-29] MEDS ORDERED: NS 0.9% 1000 ml BAG 1,000 ML IV ONE ×2 (08:14→16:01)
[2022-06-29] MEDS ORDERED: Insulin GLARGINE 100 un/ml 10 ml VIAL SUBCUT SCH ×2 (09:00→21:00)
[2022-06-29] MEDS: Polyethylene Glycol 3350 17 GM PACKET PO SCH (09:24)
[2022-06-29 10:55] LABS: Urine Osmo 334 mOsm/kg (150-1150)
[2022-06-29 15:44] LABS: Calcium 8.2 mg/dL (8.6-10.3); Potassium 5.3 mmol/L (3.5-5.0); eGFR CKD-EPI 28.5 (>60)
[2022-06-29] MEDS ORDERED: Piperacillin/Tazobac ADVAN 3.375 GM in NS 0.9% 100 ml BAG 100 ML IV ONE (15:59)
[2022-06-29] MEDS ORDERED: Zosyn per Pharmacy NOTE FOLLOW UP SCH (16:00)
[2022-06-29 16:25] LABS: PCO2 Arterial 28 mmHg (35-45); PO2 Arterial 88 mmHg (80-100)
[2022-06-29] MEDS ORDERED: Vancomycin per Pharmacy 1 EA NOTE FOLLOW UP PRN (17:33)
[2022-06-29 17:56] LABS: Osmolality Serum 290 mOsm/kg (275-295)
[2022-06-29] MEDS ORDERED: Vancomycin 750 MG in NS 0.9% 250 ml 250 ML IVPB SCH (18:00)
[2022-06-29] MEDS ORDERED: Vancomycin 1,500 MG in NS 0.9% 250 ml 250 ML IVPB ONE (18:00)
[2022-06-29] MEDS ORDERED: cefTRIAXone 1 gm/50 mL D5W 1 GM/50 ML BAG IV SCH (21:00)
[2022-06-29] MEDS: ZOSYN 3.375 GM Q8H per EXTENDED INFUSION IV SCH (23:40)
[2022-06-30 02:49] LABS: ABS Lymphocytes 0.7 10^3/ul (1.0-4.8); ABS Monocytes 1.1 10^3/ul (0-0.8); ABS Neutrophils 9.5 10^3/ul (1.5-7.7); Eosinophil % 0.1 %; Hematocrit 24 % (42-52); Lymphocyte % 6.4 %; Mean Corpuscular HGB Conc 33 g/dL (31-36); Mean Corpuscular Hemoglobin 26 pg (27-31); Mean Corpuscular Volume 79 fL (80-94); Mean Platelet Volume 7.6 fL (7.4-10.4); Platelet Count 240 10^3/uL (150-450); Red Blood Count 3.11 10^6 /uL (4.18-5.48); Red Cell Distribution Width 18 % (10-15); White Blood Count 11.4 10^3/uL (3.5-10.8)
[2022-06-30 03:09] LABS: Anion Gap 8 mmol/L (2-11); Blood Urea Nitrogen 41 mg/dL (6-24); CO2 Carbon Dioxide 19 mmol/L (22-32); Calcium 7.7 mg/dL (8.6-10.3); Chloride 97 mmol/L (101-111); Glucose 189 mg/dL (70-100); Potassium 4.7 mmol/L (3.5-5.0); Sodium 124 mmol/L (135-145); eGFR CKD-EPI 31.4 (>60)
[2022-06-30 03:12] LABS: CRP High Sensitivity > 80.00 mg/L (<2.00)
[2022-06-30] MEDS: ZOSYN 3.375 GM Q8H per EXTENDED INFUSION IV SCH ×3 (04:24→23:34)
[2022-06-30 06:05] LABS: ABS Lymphocytes 1.1 10^3/ul (1.0-4.8); ABS Monocytes 1.2 10^3/ul (0-0.8); ABS Neutrophils 8.8 10^3/ul (1.5-7.7); Eosinophil % 0.3 %; Hematocrit 26 % (42-52); Hemoglobin 8.6 g/dL (14.0-18.0); Lymphocyte % 10.1 %; Mean Corpuscular HGB Conc 33 g/dL (31-36); Mean Corpuscular Hemoglobin 26 pg (27-31); Mean Corpuscular Volume 79 fL (80-94); Mean Platelet Volume 7.5 fL (7.4-10.4); Platelet Count 234 10^3/uL (150-450); Red Blood Count 3.29 10^6 /uL (4.18-5.48); Red Cell Distribution Width 19 % (10-15); White Blood Count 11.2 10^3/uL (3.5-10.8)
[2022-06-30 06:51] LABS: Potassium 4.8 mmol/L (3.5-5.0); eGFR CKD-EPI 31.7 (>60)
[2022-06-30] MEDS ORDERED: Potassium Chlor 20 meq TAB.ER PO SCH (09:00)
[2022-06-30] MEDS ORDERED: Insulin GLARGINE 100 un/ml 10 ml VIAL SUBCUT SCH (09:00)
[2022-06-30] MEDS ORDERED: Vancomycin Random Level NOTE FOLLOW UP ONE (09:00)
[2022-06-30] MEDS: Polyethylene Glycol 3350 17 GM PACKET PO SCH (09:07)
[2022-06-30] MEDS ORDERED: Lactated Ringers 1000 ml BAG 1,000 ML IV ONE (11:15)
[2022-06-30] MEDS ORDERED: Dextrose 50% Syringe 50 ml 25 GM/50 ML SYRINGE IV PUSH PRN (13:41)
[2022-06-30] MEDS ORDERED: Lactated Ringers 1000 ml BAG 500 ML IV ONE (17:48)
[2022-06-30] MEDS ORDERED: Vancomycin 750 MG in NS 0.9% 250 ML IVPB ONE (21:00)
[2022-07-01] MEDS: ZOSYN 3.375 GM Q8H per EXTENDED INFUSION IV SCH (05:03)
[2022-07-01 05:16] LABS: ABS Eosinophils 0.3 10^3/ul (0-0.6); ABS Lymphocytes 1.2 10^3/ul (1.0-4.8); ABS Monocytes 1.1 10^3/ul (0-0.8); ABS Neutrophils 7.2 10^3/ul (1.5-7.7); Eosinophil % 2.8 %; Hematocrit 26 % (42-52); Hemoglobin 8.5 g/dL (14.0-18.0); Lymphocyte % 11.9 %; Mean Corpuscular HGB Conc 33 g/dL (31-36); Mean Corpuscular Hemoglobin 26 pg (27-31); Mean Corpuscular Volume 79 fL (80-94); Mean Platelet Volume 7.5 fL (7.4-10.4); Platelet Count 256 10^3/uL (150-450); Red Blood Count 3.33 10^6 /uL (4.18-5.48); Red Cell Distribution Width 18 % (10-15); White Blood Count 9.7 10^3/uL (3.5-10.8)
[2022-07-01] MEDS ORDERED: Vancomycin Random Level NOTE FOLLOW UP ONE (06:00)
[2022-07-01 06:10] LABS: Calcium 7.8 mg/dL (8.6-10.3); Potassium 4.6 mmol/L (3.5-5.0); Vancomycin Random 12.4 mcg/mL; eGFR CKD-EPI 34.8 (>60)
[2022-07-01] MEDS ORDERED: Insulin GLARGINE 100 un/ml 10 ml VIAL SUBCUT SCH ×3 (09:00→22:00)
[2022-07-01] MEDS: Polyethylene Glycol 3350 17 GM PACKET PO SCH (09:31)
[2022-07-01] MEDS ORDERED: Cefepime ADVAN 1 GM in NS 0.9% 50 ML 50 ML IVPB SCH (12:00)
[2022-07-01 12:41] LABS: Glucose Confirmatory 447 mg/dL (70-100)
[2022-07-01] MEDS ORDERED: Dextrose 50% Syringe 50 ml 25 GM/50 ML SYRINGE IV PUSH PRN ×2 (12:54→15:28)
[2022-07-01] MEDS: Cefepime 1 GM in Dextrose 1 GM/50 ML BAG IV SCH (13:30)
[2022-07-01] MEDS ORDERED: Insulin GLARGINE 100 un/ml 10 ml VIAL SUBCUT ONE (22:43)
[2022-07-02] MEDS: Cefepime 1 GM in Dextrose 1 GM/50 ML BAG IV SCH ×2 (00:35→13:08)
[2022-07-02 06:17] LABS: ABS Eosinophils 0.5 10^3/ul (0-0.6); ABS Lymphocytes 1.8 10^3/ul (1.0-4.8); ABS Neutrophils 6.2 10^3/ul (1.5-7.7); Eosinophil % 4.8 %; Hematocrit 26 % (42-52); Hemoglobin 8.6 g/dL (14.0-18.0); Lymphocyte % 18.7 %; Mean Corpuscular HGB Conc 33 g/dL (31-36); Mean Corpuscular Hemoglobin 26 pg (27-31); Mean Corpuscular Volume 79 fL (80-94); Mean Platelet Volume 7.8 fL (7.4-10.4); Platelet Count 282 10^3/uL (150-450); Red Blood Count 3.32 10^6 /uL (4.18-5.48); Red Cell Distribution Width 18 % (10-15); White Blood Count 9.4 10^3/uL (3.5-10.8)
[2022-07-02 06:50] LABS: Potassium 4.4 mmol/L (3.5-5.0); eGFR CKD-EPI 48.8 (>60)
[2022-07-02] MEDS: Polyethylene Glycol 3350 17 GM PACKET PO SCH (09:38)
[2022-07-02] MEDS ORDERED: Insulin GLARGINE 100 un/ml 10 ml VIAL SUBCUT SCH (21:00)
[2022-07-03] MEDS: Cefepime 1 GM in Dextrose 1 GM/50 ML BAG IV SCH ×2 (00:54→14:11)
[2022-07-03 06:56] LABS: ABS Eosinophils 0.5 10^3/ul (0-0.6); ABS Lymphocytes 1.4 10^3/ul (1.0-4.8); ABS Monocytes 0.9 10^3/ul (0-0.8); ABS Neutrophils 5.2 10^3/ul (1.5-7.7); Eosinophil % 6.5 %; Hematocrit 25 % (42-52); Hemoglobin 8.4 g/dL (14.0-18.0); Lymphocyte % 17.8 %; Mean Corpuscular HGB Conc 33 g/dL (31-36); Mean Corpuscular Hemoglobin 26 pg (27-31); Mean Corpuscular Volume 78 fL (80-94); Mean Platelet Volume 7.9 fL (7.4-10.4); Platelet Count 273 10^3/uL (150-450); Red Blood Count 3.25 10^6 /uL (4.18-5.48); Red Cell Distribution Width 19 % (10-15); White Blood Count 8.1 10^3/uL (3.5-10.8)
[2022-07-03 07:13] LABS: Potassium 4.6 mmol/L (3.5-5.0); eGFR CKD-EPI 49.2 (>60)
[2022-07-03] MEDS: Polyethylene Glycol 3350 17 GM PACKET PO SCH (08:54)
[2022-07-03 16:19] VITALS: BP 106/63
== END 2022-07-03 16:00 | disposition home or self-care (01) | DRG 872 ==
LOC: EDHOLD 18:27 → ED 18:27 → SUATTDRO 06-29 03:03 → EDHOLD 06-29 12:09 → MEDTELE 06-29 12:48
PROVIDERS: ADMIT Hospitalist; ATTEND Internal Medicine

== ENCOUNTER 2022-09-01 16:26 | Inpatient (IN) ==
[2022-09-01 20:16] LABS: Hematocrit 25 % (42-52); Hemoglobin 7.6 g/dL (14.0-18.0); Mean Corpuscular HGB Conc 31 g/dL (31-36); Mean Corpuscular Hemoglobin 22 pg (27-31); Mean Corpuscular Volume 72 fL (80-94); Mean Platelet Volume 7.5 fL (7.4-10.4); Platelet Count 390 10^3/uL (150-450); Red Blood Count 3.43 10^6 /uL (4.18-5.48); Red Cell Distribution Width 19 % (10-15); White Blood Count 14.8 10^3/uL (3.5-10.8)
[2022-09-01 20:17] LABS: ABS Eosinophils 0.2 10^3/ul (0-0.6); ABS Lymphocytes 1.5 10^3/ul (1.0-4.8); ABS Monocytes 1.1 10^3/ul (0-0.8); Eosinophil % 1.2 %; Lymphocyte % 9.9 %; Nucleated Red Blood Cells % 0.1
[2022-09-01 20:38] LABS: High Sens Troponin Baseline 10 pg/mL (<20)
[2022-09-01 20:55] LABS: ALT 13 U/L (7-52); AST 18 U/L (13-39); Albumin 2.4 g/dL (3.2-5.2); Albumin/Globulin Ratio 0.8 (1-3); Alcohol, S < 13 mg/dL (<13); Alkaline Phosphatase 233 U/L (35-149); Anion Gap 4 mmol/L (2-11); Blood Urea Nitrogen 34 mg/dL (6-24); CO2 Carbon Dioxide 26 mmol/L (22-32); Calcium 9.4 mg/dL (8.6-10.3); Chloride 97 mmol/L (101-111); Creatinine, Serum 2.32 mg/dL (0.67-1.17); Globulin 3.2 g/dL (2-4); Glucose 196 mg/dL (70-100); Magnesium 2.4 mg/dL (1.9-2.7); Sodium 127 mmol/L (135-145); Total Protein 5.6 g/dL (6.4-8.9); eGFR CKD-EPI 29.1 (>60)
[2022-09-01 21:09] LABS: TSH Ultra Thyroid Stim Horm 2.35 mcIU/mL (0.34-5.60)
[2022-09-01] MEDS ORDERED: Cefepime ADVAN 1 GM in NS 0.9% 50 ML 50 ML IVPB SCH (22:00)
[2022-09-01] MEDS ORDERED: Lactated Ringers 1000 ml BAG 1,000 ML IV ONE (22:16)
[2022-09-01] MEDS: Cefepime 1 GM in Dextrose 1 GM/50 ML BAG IV SCH (22:36)
[2022-09-01 23:22] LABS: Total Iron Binding Capacity 161 mcg/dL (250-450); Transferrin 115 mg/dL (203-362)
[2022-09-01 23:23] LABS: % Iron Saturation 12 % (15-55); Iron < 20 ug/dL (50-212); Unsaturated Iron Binding 141 ug/dL
[2022-09-01 23:43] LABS: Ferritin 220.6 ng/mL (24-336)
[2022-09-01 23:44] LABS: Osmolality Serum 286 mOsm/kg (275-295)
[2022-09-02 00:11] LABS: Urine Appearance Cloudy; Urine Bacteria 3+ (Absent); Urine Bilirubin Negative (Negative); Urine Blood 3+ (Negative); Urine Glucose 3+(>=500 mg/dL) (Negative); Urine Ketones Negative (Negative); Urine Nitrite Negative (Negative); Urine Protein 3+(>=500 mg/dL) (Negative); Urine Red Blood Cell 3+(>10/hpf) (Absent); Urine Specific Gravity 1.012 (1.002-1.030); Urine Urobilinogen Negative (Negative); Urine White Blood Cell 3+(>20/hpf) (Absent)
[2022-09-02 00:14] LABS: Urine Color Red
[2022-09-02] MEDS: Lactated Ringers 1000 ml BAG 1,000 ML IV SCH ×2 (01:16→02:13)
[2022-09-02 01:52] LABS: Urine Osmo 330 mOsm/kg (150-1150)
[2022-09-02] MEDS: Insulin GLARGINE 100 un/ml 10 ml VIAL SUBCUT SCH ×2 (02:12→23:23)
[2022-09-02] MEDS ORDERED: Albuterol/Ipratropium NEB.SOL (2.5/0.5 MG) 3 ML NEB.SOLN INH PRN (02:29)
[2022-09-02] MEDS ORDERED: Albuterol 2.5mg/3 ml (0.083%) NEB.SOLN INH PRN (02:29)
[2022-09-02] MEDS ORDERED: Dextrose 50% Syringe 50 ml 25 GM/50 ML SYRINGE IV PUSH PRN (02:39)
[2022-09-02] MEDS ORDERED: Lactated Ringers 1000 ml BAG 1,000 ML IV SCH (05:00)
[2022-09-02 05:18] LABS: ABS Eosinophils 0.1 10^3/ul (0-0.6); ABS Lymphocytes 0.9 10^3/ul (1.0-4.8); ABS Monocytes 0.8 10^3/ul (0-0.8); ABS Neutrophils 12.5 10^3/ul (1.5-7.7); Eosinophil % 0.6 %; Hematocrit 28 % (42-52); Hemoglobin 8.5 g/dL (14.0-18.0); Lymphocyte % 6.6 %; Mean Corpuscular HGB Conc 31 g/dL (31-36); Mean Corpuscular Hemoglobin 22 pg (27-31); Mean Corpuscular Volume 73 fL (80-94); Mean Platelet Volume 7.7 fL (7.4-10.4); Platelet Count 404 10^3/uL (150-450); Red Cell Distribution Width 19 % (10-15); White Blood Count 14.3 10^3/uL (3.5-10.8)
[2022-09-02 05:44] LABS: Albumin 2.4 g/dL (3.2-5.2); Albumin/Globulin Ratio 0.8 (1-3); Calcium 9.6 mg/dL (8.6-10.3); Creatinine, Serum 2.54 mg/dL (0.67-1.17); Globulin 3.2 g/dL (2-4); Magnesium 2.4 mg/dL (1.9-2.7); Potassium 5.3 mmol/L (3.5-5.0); Total Bilirubin 0.6 mg/dL (0.2-1.0); Total Protein 5.6 g/dL (6.4-8.9); eGFR CKD-EPI 26.1 (>60)
[2022-09-02] MEDS ORDERED: Cefepime ADVAN 1 GM in NS 0.9% 50 ML 50 ML IVPB SCH (06:00)
[2022-09-02] MEDS: Cefepime 1 GM in Dextrose 1 GM/50 ML BAG IV SCH (10:22)
[2022-09-02 10:55] LABS: Glucose Confirmatory 436 mg/dL (70-100)
[2022-09-02] MEDS: Ferric Gluconate IV 250 MG in NS 0.9% 250 ml 200 ML IVPB SCH (11:17)
[2022-09-02] MEDS ORDERED: Naloxone 0.4 mg VIAL 0.4 mg/ml 1 ml VIAL IV PUSH PRN (14:07)
[2022-09-02] MEDS ORDERED: Midazolam 10 mg/10 ml VIAL 1 mg/ml 10 ml VIAL (10 mg) IV SLOW PU ONE (14:07)
[2022-09-02] MEDS ORDERED: Flumazenil 0.5 mg/5 ml 0.1 MG/ML 5 ml VIAL IV PRN (14:07)
[2022-09-02] MEDS ORDERED: fentaNYL 100 mcg/2 ml 50 MCG/ML VIAL IV SLOW PU ONE (14:07)
[2022-09-02] MEDS ORDERED: Midazolam 2 mg/2 ml VIAL 1 mg/ml 2 ml VIAL (2 mg) ONE (14:42)
[2022-09-02] MEDS ORDERED: fentaNYL 100 mcg/2 ml 50 MCG/ML VIAL ONE (14:42)
[2022-09-02] MEDS ORDERED: ceFAZolin 1 GM ADVAN 1 GM ADDV.VIAL IVPB ONE (14:57)
[2022-09-02 15:16] LABS: INR 1.54 (0.88-1.18)
[2022-09-03] MEDS: Cefepime 1 GM in Dextrose 1 GM/50 ML BAG IV SCH ×3 (00:03→22:10)
[2022-09-03] MEDS: Insulin GLARGINE 100 un/ml 10 ml VIAL SUBCUT SCH ×2 (00:06→21:04)
[2022-09-03 05:13] LABS: Hematocrit 24 % (42-52); Hemoglobin 7.5 g/dL (14.0-18.0); Mean Corpuscular HGB Conc 31 g/dL (31-36); Mean Corpuscular Hemoglobin 22 pg (27-31); Mean Corpuscular Volume 71 fL (80-94); Mean Platelet Volume 7.5 fL (7.4-10.4); Platelet Count 389 10^3/uL (150-450); Red Blood Count 3.35 10^6 /uL (4.18-5.48); Red Cell Distribution Width 19 % (10-15); White Blood Count 13.8 10^3/uL (3.5-10.8)
[2022-09-03 05:27] LABS: INR 1.33 (0.88-1.18)
[2022-09-03 05:50] LABS: Calcium 9.5 mg/dL (8.6-10.3); Creatinine, Serum 2.42 mg/dL (0.67-1.17); Magnesium 2.4 mg/dL (1.9-2.7); Potassium 4.7 mmol/L (3.5-5.0); eGFR CKD-EPI 27.7 (>60)
[2022-09-03 06:11] LABS: ABS Eosinophils 0.4 10^3/ul (0-0.6); ABS Lymphocytes 1.1 10^3/ul (1.0-4.8); ABS Neutrophils 11.2 10^3/ul (1.5-7.7); Eosinophil % 2.8 %; Lymphocyte % 8.1 %
[2022-09-03] MEDS: Ferric Gluconate IV 250 MG in NS 0.9% 250 ml 200 ML IVPB SCH (09:32)
[2022-09-03 20:12] LABS: Hematocrit 30 % (42-52); Hemoglobin 9.1 g/dL (14.0-18.0)
[2022-09-03] MEDS ORDERED: Insulin GLARGINE 100 un/ml 10 ml VIAL SUBCUT SCH (21:00)
[2022-09-04 05:15] LABS: ABS Eosinophils 0.4 10^3/ul (0-0.6); ABS Lymphocytes 1.8 10^3/ul (1.0-4.8); ABS Monocytes 1.1 10^3/ul (0-0.8); ABS Neutrophils 9.4 10^3/ul (1.5-7.7); Hematocrit 25 % (42-52); Hemoglobin 7.7 g/dL (14.0-18.0); Lymphocyte % 14.1 %; Mean Corpuscular HGB Conc 31 g/dL (31-36); Mean Corpuscular Hemoglobin 23 pg (27-31); Mean Corpuscular Volume 72 fL (80-94); Mean Platelet Volume 7.3 fL (7.4-10.4); Platelet Count 347 10^3/uL (150-450); Red Blood Count 3.42 10^6 /uL (4.18-5.48); Red Cell Distribution Width 20 % (10-15); White Blood Count 12.7 10^3/uL (3.5-10.8)
[2022-09-04 05:37] LABS: INR 1.35 (0.88-1.18)
[2022-09-04 05:48] LABS: Calcium 9.3 mg/dL (8.6-10.3); Creatinine, Serum 2.02 mg/dL (0.67-1.17); Magnesium 2.1 mg/dL (1.9-2.7); Potassium 4.3 mmol/L (3.5-5.0); eGFR CKD-EPI 34.4 (>60)
[2022-09-04] MEDS: Ferric Gluconate IV 250 MG in NS 0.9% 250 ml 200 ML IVPB SCH (08:28)
[2022-09-04] MEDS: Cefepime 1 GM in Dextrose 1 GM/50 ML BAG IV SCH ×2 (17:02→21:50)
[2022-09-04 18:59] LABS: Hematocrit 28 % (42-52)
[2022-09-04] MEDS: Insulin GLARGINE 100 un/ml 10 ml VIAL SUBCUT SCH (20:59)
[2022-09-05 05:05] LABS: ABS Basophils 0.1 10^3/ul (0-0.2); ABS Eosinophils 0.4 10^3/ul (0-0.6); ABS Lymphocytes 1.8 10^3/ul (1.0-4.8); ABS Monocytes 1.1 10^3/ul (0-0.8); ABS Neutrophils 9.6 10^3/ul (1.5-7.7); Eosinophil % 3.3 %; Hematocrit 27 % (42-52); Hemoglobin 8.5 g/dL (14.0-18.0); Lymphocyte % 13.6 %; Mean Corpuscular HGB Conc 32 g/dL (31-36); Mean Corpuscular Hemoglobin 24 pg (27-31); Mean Corpuscular Volume 74 fL (80-94); Mean Platelet Volume 7.5 fL (7.4-10.4); Platelet Count 324 10^3/uL (150-450); Red Blood Count 3.62 10^6 /uL (4.18-5.48); Red Cell Distribution Width 21 % (10-15); White Blood Count 12.9 10^3/uL (3.5-10.8)
[2022-09-05 05:58] LABS: Calcium 9.5 mg/dL (8.6-10.3); Creatinine, Serum 2.05 mg/dL (0.67-1.17); Potassium 4.5 mmol/L (3.5-5.0); eGFR CKD-EPI 33.8 (>60)
[2022-09-05] MEDS: Ferric Gluconate IV 250 MG in NS 0.9% 250 ml 200 ML IVPB SCH (08:07)
[2022-09-05] MEDS: Cefepime 1 GM in Dextrose 1 GM/50 ML BAG IV SCH (10:31)
[2022-09-05] MEDS ORDERED: Insulin GLARGINE 100 un/ml 10 ml VIAL SUBCUT SCH (21:00)
[2022-09-06 04:55] LABS: ABS Eosinophils 0.5 10^3/ul (0-0.6); ABS Lymphocytes 2.4 10^3/ul (1.0-4.8); ABS Monocytes 1.4 10^3/ul (0-0.8); ABS Neutrophils 10.6 10^3/ul (1.5-7.7); Eosinophil % 3.4 %; Hematocrit 29 % (42-52); Mean Corpuscular HGB Conc 31 g/dL (31-36); Mean Corpuscular Hemoglobin 23 pg (27-31); Mean Corpuscular Volume 75 fL (80-94); Mean Platelet Volume 7.3 fL (7.4-10.4); Nucleated Red Blood Cells % 0.1; Platelet Count 350 10^3/uL (150-450); Red Blood Count 3.83 10^6 /uL (4.18-5.48); Red Cell Distribution Width 21 % (10-15); White Blood Count 14.9 10^3/uL (3.5-10.8)
[2022-09-06 05:39] LABS: Calcium 9.6 mg/dL (8.6-10.3); Creatinine, Serum 1.59 mg/dL (0.67-1.17); Magnesium 1.6 mg/dL (1.9-2.7); Potassium 4.4 mmol/L (3.5-5.0); eGFR CKD-EPI 45.8 (>60)
[2022-09-06] MEDS ORDERED: Magnesium Sulfate IV 3 GM in NS 0.9% 100 ml BAG 100 ML IVPB ONE (08:00)
[2022-09-06 09:46] LABS: C Reactive Protein 129.04 mg/L (<8.01)
[2022-09-06] MEDS: Cefepime 1 GM in Dextrose 1 GM/50 ML BAG IV SCH ×2 (10:46→22:10)
[2022-09-06] MEDS: Insulin GLARGINE 100 un/ml 10 ml VIAL SUBCUT SCH (21:52)
[2022-09-07 05:42] LABS: ABS Eosinophils 0.5 10^3/ul (0-0.6); ABS Lymphocytes 1.4 10^3/ul (1.0-4.8); ABS Monocytes 1.1 10^3/ul (0-0.8); Eosinophil % 4.2 %; Hematocrit 28 % (42-52); Hemoglobin 8.8 g/dL (14.0-18.0); Lymphocyte % 11.4 %; Mean Corpuscular HGB Conc 31 g/dL (31-36); Mean Corpuscular Hemoglobin 24 pg (27-31); Mean Corpuscular Volume 76 fL (80-94); Mean Platelet Volume 7.5 fL (7.4-10.4); Platelet Count 342 10^3/uL (150-450); Red Blood Count 3.69 10^6 /uL (4.18-5.48); Red Cell Distribution Width 21 % (10-15)
[2022-09-07 06:14] LABS: Calcium 9.4 mg/dL (8.6-10.3); Creatinine, Serum 1.96 mg/dL (0.67-1.17); Magnesium 1.9 mg/dL (1.9-2.7); Potassium 4.7 mmol/L (3.5-5.0); eGFR CKD-EPI 35.7 (>60)
[2022-09-07] MEDS ORDERED: Magnesium Sulfate IV 1GM/100ML 1 GM/100 ML BAG IV ONE (06:58)
[2022-09-07] MEDS: Cefepime 1 GM in Dextrose 1 GM/50 ML BAG IV SCH (10:20)
[2022-09-07] MEDS ORDERED: Lactated Ringers 1000 ml BAG 1,000 ML IV ONE (17:48)
[2022-09-07] MEDS: Insulin GLARGINE 100 un/ml 10 ml VIAL SUBCUT SCH (20:13)
[2022-09-08 07:29] LABS: ABS Eosinophils 0.4 10^3/ul (0-0.6); ABS Lymphocytes 1.2 10^3/ul (1.0-4.8); ABS Neutrophils 7.5 10^3/ul (1.5-7.7); Eosinophil % 4.4 %; Hematocrit 28 % (42-52); Hemoglobin 8.9 g/dL (14.0-18.0); Lymphocyte % 11.8 %; Mean Corpuscular HGB Conc 31 g/dL (31-36); Mean Corpuscular Hemoglobin 24 pg (27-31); Mean Corpuscular Volume 76 fL (80-94); Mean Platelet Volume 7.2 fL (7.4-10.4); Platelet Count 348 10^3/uL (150-450); Red Blood Count 3.76 10^6 /uL (4.18-5.48); Red Cell Distribution Width 22 % (10-15); White Blood Count 10.1 10^3/uL (3.5-10.8)
[2022-09-08 08:01] LABS: Calcium 9.6 mg/dL (8.6-10.3); Creatinine, Serum 1.47 mg/dL (0.67-1.17); Magnesium 1.7 mg/dL (1.9-2.7); Potassium 4.6 mmol/L (3.5-5.0); eGFR CKD-EPI 50.4 (>60)
[2022-09-08] MEDS ORDERED: Magnesium Sulfate IV 3 GM in NS 0.9% 100 ml BAG 100 ML IVPB ONE (09:00)
[2022-09-08] MEDS: Insulin GLARGINE 100 un/ml 10 ml VIAL SUBCUT SCH (20:44)
[2022-09-09 05:45] LABS: ABS Basophils 0.1 10^3/ul (0-0.2); ABS Eosinophils 0.5 10^3/ul (0-0.6); ABS Lymphocytes 1.5 10^3/ul (1.0-4.8); ABS Monocytes 1.2 10^3/ul (0-0.8); ABS Neutrophils 8.1 10^3/ul (1.5-7.7); Eosinophil % 4.4 %; Hematocrit 28 % (42-52); Hemoglobin 8.8 g/dL (14.0-18.0); Lymphocyte % 13.1 %; Mean Corpuscular HGB Conc 31 g/dL (31-36); Mean Corpuscular Hemoglobin 24 pg (27-31); Mean Corpuscular Volume 76 fL (80-94); Mean Platelet Volume 7.5 fL (7.4-10.4); Platelet Count 345 10^3/uL (150-450); Red Blood Count 3.73 10^6 /uL (4.18-5.48); Red Cell Distribution Width 22 % (10-15); White Blood Count 11.4 10^3/uL (3.5-10.8)
[2022-09-09 06:18] LABS: Calcium 9.7 mg/dL (8.6-10.3); Creatinine, Serum 2.21 mg/dL (0.67-1.17); Magnesium 2.1 mg/dL (1.9-2.7); eGFR CKD-EPI 30.9 (>60)
[2022-09-09 06:19] LABS: Potassium 5.1 mmol/L (3.5-5.0)
[2022-09-09 14:34] LABS: Calcium 9.9 mg/dL (8.6-10.3); Creatinine, Serum 2.23 mg/dL (0.67-1.17); Potassium 4.9 mmol/L (3.5-5.0); eGFR CKD-EPI 30.5 (>60)
[2022-09-09] MEDS ORDERED: NS 0.9% 500 ml BAG 500 ML IV SCH (15:00)
[2022-09-09] MEDS: Insulin GLARGINE 100 un/ml 10 ml VIAL SUBCUT SCH (19:46)
[2022-09-10 05:21] LABS: ABS Basophils 0.1 10^3/ul (0-0.2); ABS Eosinophils 0.5 10^3/ul (0-0.6); ABS Lymphocytes 1.4 10^3/ul (1.0-4.8); ABS Monocytes 1.2 10^3/ul (0-0.8); ABS Neutrophils 9.6 10^3/ul (1.5-7.7); Eosinophil % 3.8 %; Hematocrit 29 % (42-52); Hemoglobin 9.1 g/dL (14.0-18.0); Mean Corpuscular HGB Conc 31 g/dL (31-36); Mean Corpuscular Hemoglobin 24 pg (27-31); Mean Corpuscular Volume 76 fL (80-94); Mean Platelet Volume 7.6 fL (7.4-10.4); Platelet Count 346 10^3/uL (150-450); Red Blood Count 3.85 10^6 /uL (4.18-5.48); Red Cell Distribution Width 22 % (10-15); White Blood Count 12.8 10^3/uL (3.5-10.8)
[2022-09-10 06:03] LABS: Blood Urea Nitrogen 35 mg/dL (6-24); CO2 Carbon Dioxide 28 mmol/L (22-32); Calcium 9.7 mg/dL (8.6-10.3); Chloride 102 mmol/L (101-111); Creatinine, Serum 2.15 mg/dL (0.67-1.17); Glucose 126 mg/dL (70-100); Magnesium 1.8 mg/dL (1.9-2.7); Sodium 130 mmol/L (135-145); eGFR CKD-EPI 31.9 (>60)
[2022-09-10 06:04] LABS: Potassium 5.1 mmol/L (3.5-5.0)
[2022-09-10] MEDS ORDERED: Magnesium Sulfate 2 gm BAG 2 GM/50 ML BAG IVPB ONE (07:33)
[2022-09-10] MEDS ORDERED: NS 0.9% 1000 ml BAG 1,000 ML IV SCH (10:00)
[2022-09-10] MEDS: Cefepime 1 GM in Dextrose 1 GM/50 ML BAG IV SCH (12:11)
[2022-09-10] MEDS ORDERED: Senna TAB 8.6 mg TAB PO PRN (13:24)
[2022-09-10] MEDS ORDERED: Polyethylene Glycol 3350 17 GM PACKET PO PRN (13:24)
[2022-09-10] MEDS: Insulin GLARGINE 100 un/ml 10 ml VIAL SUBCUT SCH (20:05)
[2022-09-11 05:24] LABS: ABS Basophils 0.1 10^3/ul (0-0.2); ABS Eosinophils 0.6 10^3/ul (0-0.6); ABS Lymphocytes 1.7 10^3/ul (1.0-4.8); ABS Monocytes 1.2 10^3/ul (0-0.8); ABS Neutrophils 8.9 10^3/ul (1.5-7.7); Eosinophil % 4.5 %; Hematocrit 27 % (42-52); Hemoglobin 8.5 g/dL (14.0-18.0); Lymphocyte % 13.5 %; Mean Corpuscular HGB Conc 31 g/dL (31-36); Mean Corpuscular Hemoglobin 24 pg (27-31); Mean Corpuscular Volume 76 fL (80-94); Mean Platelet Volume 7.6 fL (7.4-10.4); Platelet Count 351 10^3/uL (150-450); Red Blood Count 3.59 10^6 /uL (4.18-5.48); Red Cell Distribution Width 22 % (10-15); White Blood Count 12.4 10^3/uL (3.5-10.8)
[2022-09-11 05:39] LABS: Blood Urea Nitrogen 26 mg/dL (6-24); CO2 Carbon Dioxide 29 mmol/L (22-32); Calcium 9.3 mg/dL (8.6-10.3); Chloride 101 mmol/L (101-111); Creatinine, Serum 1.35 mg/dL (0.67-1.17); Glucose 192 mg/dL (70-100); Magnesium 1.6 mg/dL (1.9-2.7); Potassium 4.6 mmol/L (3.5-5.0); Sodium 130 mmol/L (135-145); eGFR CKD-EPI 55.8 (>60)
[2022-09-11] MEDS ORDERED: Magnesium Sulf 4 GM/100 ML IV 4,000 MG/100 ML BAG IVPB ONE (07:44)
[2022-09-11] MEDS: Cefepime 1 GM in Dextrose 1 GM/50 ML BAG IV SCH (09:03)
[2022-09-11] MEDS: Insulin GLARGINE 100 un/ml 10 ml VIAL SUBCUT SCH (20:29)
[2022-09-12 09:23] LABS: Calcium 9.1 mg/dL (8.6-10.3); Creatinine, Serum 1.13 mg/dL (0.67-1.17); Magnesium 1.7 mg/dL (1.9-2.7); Potassium 4.6 mmol/L (3.5-5.0); eGFR CKD-EPI 69.1 (>60)
[2022-09-12] MEDS: Cefepime 1 GM in Dextrose 1 GM/50 ML BAG IV SCH (10:04)
[2022-09-12] MEDS ORDERED: Magnesium Sulfate IV 3 GM in NS 0.9% 100 ml BAG 100 ML IVPB ONE (11:00)
[2022-09-12] MEDS ORDERED: Dextrose 50% Syringe 50 ml 25 GM/50 ML SYRINGE IV PUSH PRN (14:42)
[2022-09-12] MEDS: Insulin GLARGINE 100 un/ml 10 ml VIAL SUBCUT SCH (19:20)
[2022-09-13 05:35] LABS: ABS Eosinophils 0.4 10^3/ul (0-0.6); ABS Lymphocytes 1.2 10^3/ul (1.0-4.8); ABS Monocytes 1.1 10^3/ul (0-0.8); ABS Neutrophils 7.6 10^3/ul (1.5-7.7); Eosinophil % 3.5 %; Hematocrit 26 % (42-52); Hemoglobin 8.4 g/dL (14.0-18.0); Lymphocyte % 12.1 %; Mean Corpuscular HGB Conc 32 g/dL (31-36); Mean Corpuscular Hemoglobin 24 pg (27-31); Mean Corpuscular Volume 75 fL (80-94); Mean Platelet Volume 7.4 fL (7.4-10.4); Platelet Count 351 10^3/uL (150-450); Red Blood Count 3.46 10^6 /uL (4.18-5.48); Red Cell Distribution Width 22 % (10-15); White Blood Count 10.3 10^3/uL (3.5-10.8)
[2022-09-13 06:11] LABS: Calcium 8.9 mg/dL (8.6-10.3); Creatinine, Serum 1.17 mg/dL (0.67-1.17); Magnesium 1.9 mg/dL (1.9-2.7); eGFR CKD-EPI 66.2 (>60)
[2022-09-13] MEDS ORDERED: Magnesium Sulfate IV 1GM/100ML 1 GM/100 ML BAG IV ONE (07:18)
[2022-09-13] MEDS: Cefepime 1 GM in Dextrose 1 GM/50 ML BAG IV SCH (11:13)
[2022-09-13] MEDS: Insulin GLARGINE 100 un/ml 10 ml VIAL SUBCUT SCH (19:20)
[2022-09-14 05:29] LABS: ABS Eosinophils 0.3 10^3/ul (0-0.6); ABS Lymphocytes 1.4 10^3/ul (1.0-4.8); ABS Monocytes 1.3 10^3/ul (0-0.8); ABS Neutrophils 9.3 10^3/ul (1.5-7.7); Eosinophil % 2.5 %; Hematocrit 26 % (42-52); Hemoglobin 8.1 g/dL (14.0-18.0); Lymphocyte % 11.5 %; Mean Corpuscular HGB Conc 31 g/dL (31-36); Mean Corpuscular Hemoglobin 23 pg (27-31); Mean Corpuscular Volume 74 fL (80-94); Mean Platelet Volume 7.3 fL (7.4-10.4); Platelet Count 372 10^3/uL (150-450); Red Cell Distribution Width 22 % (10-15); White Blood Count 12.5 10^3/uL (3.5-10.8)
[2022-09-14 05:59] LABS: Calcium 8.8 mg/dL (8.6-10.3); Creatinine, Serum 1.53 mg/dL (0.67-1.17); Magnesium 1.8 mg/dL (1.9-2.7)
[2022-09-14 06:04] LABS: Potassium 5.1 mmol/L (3.5-5.0)
[2022-09-14] MEDS ORDERED: Magnesium Sulfate 2 gm BAG 2 GM/50 ML BAG IVPB ONE (07:10)
[2022-09-14] MEDS ORDERED: SODIUM ZIRCONIUM CYCLOSILICATE 5 GM PACKET PO ONE (09:30)
[2022-09-14] MEDS: Cefepime 1 GM in Dextrose 1 GM/50 ML BAG IV SCH (10:25)
[2022-09-14] MEDS ORDERED: Lactated Ringers 1000 ml BAG 1,000 ML IV ONE (10:55)
[2022-09-14 13:16] LABS: Urine Appearance Turbid; Urine Bilirubin Negative (Negative); Urine Blood 2+ (Negative); Urine Color Yellow; Urine Glucose 2+(150 mg/dL) (Negative); Urine Ketones Negative (Negative); Urine Nitrite Negative (Negative); Urine Protein 3+(>=500 mg/dL) (Negative); Urine Urobilinogen Negative (Negative)
[2022-09-14 13:21] LABS: Urine Bacteria 1+ (Absent); Urine Red Blood Cell 3+(>10/hpf) (Absent); Urine White Blood Cell 3+(>20/hpf) (Absent)
[2022-09-14 14:53] LABS: Calcium 8.8 mg/dL (8.6-10.3); Creatinine, Serum 1.78 mg/dL (0.67-1.17)
[2022-09-14] MEDS: Insulin GLARGINE 100 un/ml 10 ml VIAL SUBCUT SCH (20:50)
[2022-09-14 20:54] LABS: Calcium 9.1 mg/dL (8.6-10.3); Creatinine, Serum 1.97 mg/dL (0.67-1.17); eGFR CKD-EPI 35.4 (>60)
[2022-09-14 20:58] LABS: Potassium 5.7 mmol/L (3.5-5.0)
[2022-09-14 21:09] LABS: Urine Osmo 207 mOsm/kg (150-1150)
[2022-09-14] MEDS ORDERED: NS 0.9% 1000 ml BAG 1,000 ML IV ONE (22:28)
[2022-09-14] MEDS ORDERED: Dextrose 50% Syringe 50 ml 25 GM/50 ML SYRINGE IV PUSH ONE (22:42)
[2022-09-14] MEDS ORDERED: SODIUM ZIRCONIUM CYCLOSILICATE 10 GM PACKET PO ONE (22:42)
[2022-09-15 05:46] LABS: ABS Eosinophils 0.3 10^3/ul (0-0.6); ABS Lymphocytes 1.1 10^3/ul (1.0-4.8); ABS Monocytes 1.1 10^3/ul (0-0.8); ABS Neutrophils 10.9 10^3/ul (1.5-7.7); Eosinophil % 2.3 %; Hematocrit 26 % (42-52); Hemoglobin 8.2 g/dL (14.0-18.0); Lymphocyte % 8.3 %; Mean Corpuscular HGB Conc 31 g/dL (31-36); Mean Corpuscular Hemoglobin 24 pg (27-31); Mean Corpuscular Volume 75 fL (80-94); Mean Platelet Volume 7.5 fL (7.4-10.4); Platelet Count 367 10^3/uL (150-450); Red Blood Count 3.49 10^6 /uL (4.18-5.48); Red Cell Distribution Width 22 % (10-15); White Blood Count 13.5 10^3/uL (3.5-10.8)
[2022-09-15 06:25] LABS: Calcium 8.5 mg/dL (8.6-10.3); Creatinine, Serum 1.79 mg/dL (0.67-1.17); Potassium 4.7 mmol/L (3.5-5.0); eGFR CKD-EPI 39.8 (>60)
[2022-09-15] MEDS: Cefepime 1 GM in Dextrose 1 GM/50 ML BAG IV SCH (10:32)
[2022-09-15] MEDS ORDERED: NS 0.9% 500 ml BAG 500 ML IV ONE (10:51)
[2022-09-15] MEDS ORDERED: NS 0.9% 1000 ml BAG 1,000 ML IV SCH (11:00)
[2022-09-15] MEDS: Insulin GLARGINE 100 un/ml 10 ml VIAL SUBCUT SCH (20:18)
[2022-09-16 06:25] LABS: ABS Eosinophils 0.3 10^3/ul (0-0.6); ABS Lymphocytes 0.7 10^3/ul (1.0-4.8); ABS Monocytes 0.9 10^3/ul (0-0.8); ABS Neutrophils 10.4 10^3/ul (1.5-7.7); Eosinophil % 2.6 %; Hematocrit 26 % (42-52); Hemoglobin 8.2 g/dL (14.0-18.0); Mean Corpuscular HGB Conc 32 g/dL (31-36); Mean Corpuscular Hemoglobin 24 pg (27-31); Mean Corpuscular Volume 75 fL (80-94); Mean Platelet Volume 7.3 fL (7.4-10.4); Platelet Count 376 10^3/uL (150-450); Red Blood Count 3.41 10^6 /uL (4.18-5.48); Red Cell Distribution Width 22 % (10-15); White Blood Count 12.5 10^3/uL (3.5-10.8)
[2022-09-16 06:38] LABS: INR 2.45 (0.88-1.18)
[2022-09-16 07:10] LABS: Calcium 8.7 mg/dL (8.6-10.3); Creatinine, Serum 1.7 mg/dL (0.67-1.17); Potassium 4.1 mmol/L (3.5-5.0); eGFR CKD-EPI 42.3 (>60)
[2022-09-16] MEDS: Insulin GLARGINE 100 un/ml 10 ml VIAL SUBCUT SCH (21:05)
[2022-09-17 05:40] LABS: Hematocrit 25 % (42-52); Hemoglobin 8.2 g/dL (14.0-18.0); Mean Corpuscular HGB Conc 33 g/dL (31-36); Mean Corpuscular Hemoglobin 24 pg (27-31); Mean Corpuscular Volume 75 fL (80-94); Mean Platelet Volume 7.1 fL (7.4-10.4); Platelet Count 385 10^3/uL (150-450); Red Blood Count 3.36 10^6 /uL (4.18-5.48); Red Cell Distribution Width 22 % (10-15); White Blood Count 11.9 10^3/uL (3.5-10.8)
[2022-09-17 06:26] LABS: Calcium 8.7 mg/dL (8.6-10.3); Creatinine, Serum 1.36 mg/dL (0.67-1.17); Potassium 3.9 mmol/L (3.5-5.0); eGFR CKD-EPI 55.3 (>60)
[2022-09-17] MEDS: HYDROmorphone 0.5 MG/0.5 ML SYRINGE IV SLOW PU PRN (14:28)
[2022-09-17] MEDS: Insulin GLARGINE 100 un/ml 10 ml VIAL SUBCUT SCH (20:53)
[2022-09-18 05:40] LABS: Calcium 8.2 mg/dL (8.6-10.3); Creatinine, Serum 1.28 mg/dL (0.67-1.17); Potassium 3.7 mmol/L (3.5-5.0); eGFR CKD-EPI 59.5 (>60)
[2022-09-18 08:01] LABS: Magnesium 1.5 mg/dL (1.9-2.7)
[2022-09-18] MEDS: HYDROmorphone 0.5 MG/0.5 ML SYRINGE IV SLOW PU PRN (08:21)
[2022-09-18] MEDS ORDERED: Magnesium Sulfate IV 3 GM in NS 0.9% 100 ml BAG 100 ML IVPB ONE (08:45)
[2022-09-18] MEDS ORDERED: NS 0.9% 1000 ml BAG 1,000 ML IV ONE ×2 (10:26→14:59)
[2022-09-18] MEDS: Acetaminophen IV 1 GM/100ML 1,000 MG/100 ML BAG IV SCH (17:22)
[2022-09-18] MEDS ORDERED: Cefepime 1 GM in Dextrose 1 GM/50 ML BAG IV SCH (18:00)
[2022-09-18] MEDS ORDERED: Lactated Ringers 1000 ml BAG 1,000 ML IV ONE ×2 (18:11→21:01)
[2022-09-18 18:20] LABS: Urine Appearance Turbid; Urine Bilirubin Negative (Negative); Urine Blood 2+ (Negative); Urine Color Yellow; Urine Glucose 1+(50 mg/dL) (Negative); Urine Ketones Negative (Negative); Urine Nitrite Negative (Negative); Urine Protein 2+(100 mg/dL) (Negative); Urine Specific Gravity 1.018 (1.002-1.030); Urine Urobilinogen Negative (Negative)
[2022-09-18 18:50] LABS: Urine Bacteria 3+ (Absent); Urine Red Blood Cell 3+(>10/hpf) (Absent); Urine White Blood Cell 3+(>20/hpf) (Absent)
[2022-09-18 18:54] LABS: ABS Eosinophils 0.4 10^3/ul (0-0.6); ABS Lymphocytes 0.6 10^3/ul (1.0-4.8); ABS Monocytes 0.6 10^3/ul (0-0.8); ABS Neutrophils 11.1 10^3/ul (1.5-7.7); Eosinophil % 3.4 %; Hematocrit 23 % (42-52); Lymphocyte % 4.6 %; Mean Corpuscular HGB Conc 31 g/dL (31-36); Mean Corpuscular Hemoglobin 23 pg (27-31); Mean Corpuscular Volume 74 fL (80-94); Mean Platelet Volume 7.1 fL (7.4-10.4); Platelet Count 298 10^3/uL (150-450); Red Cell Distribution Width 21 % (10-15); White Blood Count 12.7 10^3/uL (3.5-10.8)
[2022-09-18 19:12] LABS: Albumin 1.8 g/dL (3.2-5.2); Albumin/Globulin Ratio 0.7 (1-3); Calcium 7.8 mg/dL (8.6-10.3); Creatinine, Serum 1.59 mg/dL (0.67-1.17); Globulin 2.7 g/dL (2-4); Magnesium 1.9 mg/dL (1.9-2.7); Potassium 3.6 mmol/L (3.5-5.0); Total Bilirubin 0.5 mg/dL (0.2-1.0); Total Protein 4.5 g/dL (6.4-8.9); eGFR CKD-EPI 45.8 (>60)
[2022-09-18] MEDS ORDERED: Linezolid 600 MG IVPREMIX(*) 600 MG/300 ML BAG IVPB ONE (21:04)
[2022-09-18] MEDS: Insulin GLARGINE 100 un/ml 10 ml VIAL SUBCUT SCH (21:08)
[2022-09-19] MEDS: Acetaminophen IV 1 GM/100ML 1,000 MG/100 ML BAG IV SCH ×3 (02:20→16:08)
[2022-09-19] MEDS ORDERED: Lactated Ringers 1000 ml BAG 1,000 ML IV ONE (06:17)
[2022-09-19 07:45] LABS: Hematocrit 23 % (42-52); Hemoglobin 7.3 g/dL (14.0-18.0); Mean Corpuscular HGB Conc 32 g/dL (31-36); Mean Corpuscular Hemoglobin 24 pg (27-31); Mean Corpuscular Volume 74 fL (80-94); Mean Platelet Volume 7.6 fL (7.4-10.4); Platelet Count 305 10^3/uL (150-450); Red Blood Count 3.12 10^6 /uL (4.18-5.48); Red Cell Distribution Width 22 % (10-15); White Blood Count 11.1 10^3/uL (3.5-10.8)
[2022-09-19 07:54] LABS: C Reactive Protein 160.68 mg/L (<8.01); Calcium 7.8 mg/dL (8.6-10.3); Creatinine, Serum 1.49 mg/dL (0.67-1.17); Potassium 3.7 mmol/L (3.5-5.0); eGFR CKD-EPI 49.6 (>60)
[2022-09-19] MEDS ORDERED: KCL 10 MEQ/50 ML IVPREMIX 10 MEQ/50 ML BAG IV ONE (08:17)
[2022-09-19 09:24] LABS: Magnesium 1.8 mg/dL (1.9-2.7)
[2022-09-19] MEDS ORDERED: Magnesium Sulfate 2 gm BAG 2 GM/50 ML BAG IVPB ONE (11:13)
[2022-09-19] MEDS ORDERED: Piperacillin/Tazobac ADVAN 3.375 GM in NS 0.9% 100 ml BAG 100 ML IV ONE (13:00)
[2022-09-19] MEDS ORDERED: Zosyn per Pharmacy NOTE FOLLOW UP SCH (13:00)
[2022-09-19] MEDS: ZOSYN 3.375 GM Q8H per EXTENDED INFUSION IV SCH (17:19)
[2022-09-19] MEDS: Insulin GLARGINE 100 un/ml 10 ml VIAL SUBCUT SCH (21:37)
[2022-09-19] MEDS ORDERED: Amiodarone 150 mg IVPREMIX 150 MG/100 ML BAG IV ONE (22:21)
[2022-09-19 23:51] LABS: Magnesium 2.1 mg/dL (1.9-2.7)
[2022-09-20] MEDS ORDERED: Metoprolol Tartrate 5 mg VIAL 5 ml VIAL (1 mg/ml) IV ONE (00:43)
[2022-09-20] MEDS ORDERED: Metoprolol Tartrate 5 mg VIAL 5 ml VIAL (1 mg/ml) ONE (00:48)
[2022-09-20] MEDS: Acetaminophen IV 1 GM/100ML 1,000 MG/100 ML BAG IV SCH ×3 (00:56→18:25)
[2022-09-20] MEDS: ZOSYN 3.375 GM Q8H per EXTENDED INFUSION IV SCH ×2 (03:28→10:43)
[2022-09-20 05:40] LABS: ABS Eosinophils 0.2 10^3/ul (0-0.6); ABS Lymphocytes 0.6 10^3/ul (1.0-4.8); ABS Monocytes 0.8 10^3/ul (0-0.8); ABS Neutrophils 8.8 10^3/ul (1.5-7.7); Eosinophil % 1.9 %; Hematocrit 22 % (42-52); Mean Corpuscular HGB Conc 32 g/dL (31-36); Mean Corpuscular Hemoglobin 24 pg (27-31); Mean Corpuscular Volume 75 fL (80-94); Mean Platelet Volume 7.3 fL (7.4-10.4); Platelet Count 287 10^3/uL (150-450); Red Blood Count 2.95 10^6 /uL (4.18-5.48); Red Cell Distribution Width 22 % (10-15); White Blood Count 10.5 10^3/uL (3.5-10.8)
[2022-09-20 06:03] LABS: Calcium 7.4 mg/dL (8.6-10.3); Creatinine, Serum 1.41 mg/dL (0.67-1.17); Potassium 3.6 mmol/L (3.5-5.0); eGFR CKD-EPI 52.9 (>60)
[2022-09-20] MEDS ORDERED: Potassium Chlor 20 meq TAB.ER PO ONE (06:38)
[2022-09-20] MEDS: Digoxin IV 0.5 MG/2 ML AMP (0.25 MG/ML) IV SLOW PU SCH (17:35)
[2022-09-20] MEDS ORDERED: NS 0.9% 1000 ml BAG 1,000 ML IV ONE (17:48)
[2022-09-20] MEDS ORDERED: Vancomycin 1,500 MG in NS 0.9% 250 ml 250 ML IVPB ONE (18:05)
[2022-09-20] MEDS ORDERED: Vancomycin per Pharmacy 1 EA NOTE FOLLOW UP SCH (19:00)
[2022-09-20] MEDS ORDERED: NS 0.9% 1000 ml BAG 1,000 ML IV SCH (19:30)
[2022-09-20 22:26] LABS: Hematocrit 19 % (42-52); Hemoglobin 6.2 g/dL (14.0-18.0); Mean Corpuscular HGB Conc 32 g/dL (31-36); Mean Corpuscular Hemoglobin 24 pg (27-31); Mean Corpuscular Volume 75 fL (80-94); Mean Platelet Volume 7.7 fL (7.4-10.4); Platelet Count 310 10^3/uL (150-450); Red Cell Distribution Width 22 % (10-15); White Blood Count 10.5 10^3/uL (3.5-10.8)
[2022-09-21] MEDS: ZOSYN 3.375 GM Q8H per EXTENDED INFUSION IV SCH ×4 (00:44→18:12)
[2022-09-21] MEDS: Insulin GLARGINE 100 un/ml 10 ml VIAL SUBCUT SCH ×2 (00:45→22:10)
[2022-09-21] MEDS: Digoxin IV 0.5 MG/2 ML AMP (0.25 MG/ML) IV SLOW PU SCH (00:59)
[2022-09-21] MEDS: Acetaminophen IV 1 GM/100ML 1,000 MG/100 ML BAG IV SCH ×3 (05:23→22:31)
[2022-09-21 08:51] LABS: Hematocrit 24 % (42-52); Hemoglobin 7.7 g/dL (14.0-18.0); Mean Corpuscular HGB Conc 31 g/dL (31-36); Mean Corpuscular Hemoglobin 24 pg (27-31); Mean Corpuscular Volume 75 fL (80-94); Mean Platelet Volume 7.5 fL (7.4-10.4); Platelet Count 284 10^3/uL (150-450); Red Blood Count 3.26 10^6 /uL (4.18-5.48); Red Cell Distribution Width 22 % (10-15); White Blood Count 11.3 10^3/uL (3.5-10.8)
[2022-09-21 09:22] LABS: ABS Basophils 0.1 10^3/ul (0-0.2); ABS Eosinophils 0.1 10^3/ul (0-0.6); ABS Lymphocytes 0.5 10^3/ul (1.0-4.8); ABS Monocytes 0.8 10^3/ul (0-0.8); ABS Neutrophils 9.9 10^3/ul (1.5-7.7); Lymphocyte % 4.2 %
[2022-09-21 09:33] LABS: Direct Bilirubin 0.3 mg/dL (0.03-0.18); Indirect Bilirubin 0.4 mg/dL (0.3-1.0); Total Bilirubin 0.7 mg/dL (0.2-1.0)
[2022-09-21 09:42] LABS: Calcium 7.4 mg/dL (8.6-10.3); Creatinine, Serum 1.28 mg/dL (0.67-1.17); Potassium 4.1 mmol/L (3.5-5.0); eGFR CKD-EPI 59.5 (>60)
[2022-09-21] MEDS ORDERED: Alteplase (CATHFLO) 2 MG VIAL IV ONE (12:19)
[2022-09-21] MEDS ORDERED: Vancomycin 1,500 MG in NS 0.9% 250 ml 250 ML IVPB SCH (21:00)
[2022-09-22] MEDS: ZOSYN 3.375 GM Q8H per EXTENDED INFUSION IV SCH ×2 (00:23→09:38)
[2022-09-22] MEDS: Acetaminophen IV 1 GM/100ML 1,000 MG/100 ML BAG IV SCH ×3 (05:20→22:24)
[2022-09-22 05:39] LABS: Hematocrit 25 % (42-52); Hemoglobin 8.1 g/dL (14.0-18.0); Mean Corpuscular HGB Conc 33 g/dL (31-36); Mean Corpuscular Hemoglobin 25 pg (27-31); Mean Corpuscular Volume 76 fL (80-94); Mean Platelet Volume 7.4 fL (7.4-10.4); Platelet Count 342 10^3/uL (150-450); Red Blood Count 3.22 10^6 /uL (4.18-5.48); Red Cell Distribution Width 22 % (10-15); White Blood Count 15.3 10^3/uL (3.5-10.8)
[2022-09-22 05:44] LABS: INR 2.36 (0.88-1.18)
[2022-09-22 05:47] LABS: Calcium 7.8 mg/dL (8.6-10.3); Potassium 4.2 mmol/L (3.5-5.0)
[2022-09-22 05:52] LABS: Creatinine, Serum 1.29 mg/dL (0.67-1.17); eGFR CKD-EPI 58.9 (>60)
[2022-09-22] MEDS ORDERED: NS 0.9% 500 ml BAG 500 ML IV SCH (08:00)
[2022-09-22] MEDS ORDERED: NS 0.9% IV SCH (08:00)
[2022-09-22 17:58] LABS: % Iron Saturation 19 % (15-55); Iron < 20 ug/dL (50-212); Total Iron Binding Capacity 105 mcg/dL (250-450); Transferrin < 75 mg/dL (203-362); Unsaturated Iron Binding 85 ug/dL
[2022-09-22 18:18] LABS: Ferritin 487.8 ng/mL (24-336)
[2022-09-22 18:22] LABS: Vitamin B12 819 pg/mL (180-914)
[2022-09-22] MEDS: Insulin GLARGINE 100 un/ml 10 ml VIAL SUBCUT SCH (22:20)
[2022-09-23] MEDS ORDERED: Albumin Human 25% 25 GM/100 ML BTL IV ONE (02:21)
[2022-09-23] MEDS: Acetaminophen IV 1 GM/100ML 1,000 MG/100 ML BAG IV SCH ×3 (04:41→23:01)
[2022-09-23 05:25] LABS: INR 2.25 (0.88-1.18)
[2022-09-23 06:06] LABS: Calcium 7.8 mg/dL (8.6-10.3); Potassium 4.3 mmol/L (3.5-5.0)
[2022-09-23 06:12] LABS: Creatinine, Serum 1.35 mg/dL (0.67-1.17); eGFR CKD-EPI 55.8 (>60)
[2022-09-23] MEDS ORDERED: fentaNYL 100 mcg/2 ml 50 MCG/ML VIAL ONE (10:58)
[2022-09-23 12:06] LABS: Hematocrit 21 % (42-52); Hemoglobin 6.7 g/dL (14.0-18.0); Mean Corpuscular HGB Conc 32 g/dL (31-36); Mean Corpuscular Hemoglobin 24 pg (27-31); Mean Corpuscular Volume 76 fL (80-94); Mean Platelet Volume 7.5 fL (7.4-10.4); Platelet Count 308 10^3/uL (150-450); Red Blood Count 2.77 10^6 /uL (4.18-5.48); Red Cell Distribution Width 23 % (10-15); White Blood Count 13.9 10^3/uL (3.5-10.8)
[2022-09-23 13:39] LABS: Rapid COVID-19 Molecular Undetected (Undetected)
[2022-09-23] MEDS ORDERED: Vancomycin Trough Check NOTE FOLLOW UP ONE (20:00)
[2022-09-23] MEDS: Insulin GLARGINE 100 un/ml 10 ml VIAL SUBCUT SCH (21:32)
[2022-09-23 23:43] LABS: Hematocrit 26 % (42-52); Hemoglobin 8.4 g/dL (14.0-18.0); Mean Corpuscular HGB Conc 32 g/dL (31-36); Mean Corpuscular Hemoglobin 25 pg (27-31); Mean Corpuscular Volume 77 fL (80-94); Mean Platelet Volume 7.3 fL (7.4-10.4); Platelet Count 309 10^3/uL (150-450); Red Blood Count 3.42 10^6 /uL (4.18-5.48); Red Cell Distribution Width 23 % (10-15); White Blood Count 14.9 10^3/uL (3.5-10.8)
[2022-09-24 05:17] LABS: Urine Color Red
[2022-09-24 05:18] LABS: Urine Appearance Turbid; Urine Specific Gravity 1.016 (1.002-1.030)
[2022-09-24 05:19] LABS: Urine Bacteria 2+ (Absent); Urine Red Blood Cell 3+(>10/hpf) (Absent); Urine White Blood Cell 3+(>20/hpf) (Absent)
[2022-09-24 05:20] LABS: Urine Yeast Present (Absent)
[2022-09-24] MEDS: Acetaminophen IV 1 GM/100ML 1,000 MG/100 ML BAG IV SCH ×3 (05:46→21:34)
[2022-09-24 06:20] LABS: INR 1.78 (0.88-1.18)
[2022-09-24 06:24] LABS: ABS Eosinophils 0.1 10^3/ul (0-0.6); ABS Lymphocytes 0.6 10^3/ul (1.0-4.8); ABS Monocytes 1.1 10^3/ul (0-0.8); ABS Neutrophils 11.8 10^3/ul (1.5-7.7); Eosinophil % 0.8 %; Hematocrit 26 % (42-52); Hemoglobin 8.5 g/dL (14.0-18.0); Lymphocyte % 4.4 %; Mean Corpuscular HGB Conc 33 g/dL (31-36); Mean Corpuscular Hemoglobin 25 pg (27-31); Mean Corpuscular Volume 78 fL (80-94); Mean Platelet Volume 7.6 fL (7.4-10.4); Platelet Count 294 10^3/uL (150-450); Red Blood Count 3.33 10^6 /uL (4.18-5.48); Red Cell Distribution Width 23 % (10-15); White Blood Count 13.7 10^3/uL (3.5-10.8)
[2022-09-24 06:35] LABS: Calcium 7.8 mg/dL (8.6-10.3); Creatinine, Serum 1.42 mg/dL (0.67-1.17); Magnesium 1.6 mg/dL (1.9-2.7); Potassium 4.3 mmol/L (3.5-5.0); eGFR CKD-EPI 52.5 (>60)
[2022-09-24] MEDS ORDERED: fentaNYL 100 mcg/2 ml 50 MCG/ML VIAL ONE (09:01)
[2022-09-24] MEDS ORDERED: Magnesium Sulfate IV 3 GM in NS 0.9% 100 ml BAG 100 ML IVPB ONE (15:30)
[2022-09-24] MEDS: Insulin GLARGINE 100 un/ml 10 ml VIAL SUBCUT SCH (21:34)
[2022-09-25] MEDS: Acetaminophen IV 1 GM/100ML 1,000 MG/100 ML BAG IV SCH (05:50)
[2022-09-25 06:11] LABS: Hematocrit 26 % (42-52); Hemoglobin 8.5 g/dL (14.0-18.0); Mean Corpuscular HGB Conc 32 g/dL (31-36); Mean Corpuscular Hemoglobin 25 pg (27-31); Mean Corpuscular Volume 77 fL (80-94); Mean Platelet Volume 7.5 fL (7.4-10.4); Platelet Count 290 10^3/uL (150-450); Red Blood Count 3.42 10^6 /uL (4.18-5.48); Red Cell Distribution Width 23 % (10-15); White Blood Count 14.6 10^3/uL (3.5-10.8)
[2022-09-25 06:17] LABS: INR 2.15 (0.88-1.18)
[2022-09-25 06:38] LABS: Calcium 7.7 mg/dL (8.6-10.3); Creatinine, Serum 1.45 mg/dL (0.67-1.17); Potassium 4.5 mmol/L (3.5-5.0); eGFR CKD-EPI 51.2 (>60)
[2022-09-25 08:14] LABS: Magnesium 1.9 mg/dL (1.9-2.7)
[2022-09-25 11:18] VITALS: BP 89/47
== END 2022-09-25 10:15 | disposition hospice, home (50) | DRG 689 ==
LOC: EDHOLD 16:26 → ED 16:26 → OBSVTOIN 22:44 → SUATTDRO 22:44 → EDHOLD 09-02 16:28 → MED 09-02 20:35 → ICU 09-19 13:27 → SSU 09-20 08:45 → MEDTELE 09-20 21:10
PROVIDERS: ADMIT Hospitalist; ATTEND Internal Medicine

== ENCOUNTER 2022-10-02 16:32 | Inpatient (IN) ==
[2022-10-02] MEDS ORDERED: fentaNYL 100 mcg/2 ml 50 MCG/ML VIAL IV SLOW PU ONE (17:42)
[2022-10-02] MEDS ORDERED: Polyethylene Glycol 3350 17 GM PACKET PO PRN (19:25)
[2022-10-02] MEDS: Nystatin TOP POWDER 15 GM BTL TOPICAL SCH (22:03)
[2022-10-03] MEDS: Morphine ORAL CONCENTRATE 5 MG/0.25 ML ORAL.SYRIN PO PRN ×5 (00:40→18:31)
[2022-10-03] MEDS: Morphine 2 MG/ML SYRINGE IV PRN ×4 (01:55→21:05)
[2022-10-03] MEDS: Nystatin TOP POWDER 15 GM BTL TOPICAL SCH ×3 (08:30→21:05)
[2022-10-03] MEDS ORDERED: Dextrose 50% Syringe 50 ml 25 GM/50 ML SYRINGE IV PUSH PRN (21:52)
[2022-10-03] MEDS: Insulin GLARGINE 100 un/ml 10 ml VIAL SUBCUT SCH (22:05)
[2022-10-04] MEDS: Morphine ORAL CONCENTRATE 5 MG/0.25 ML ORAL.SYRIN PO PRN (02:17)
[2022-10-04] MEDS: Nystatin TOP POWDER 15 GM BTL TOPICAL SCH ×3 (11:13→20:25)
[2022-10-04] MEDS ORDERED: Senna TAB 8.6 mg TAB PO PRN (14:19)
[2022-10-04 15:04] VITALS: BP 72/43
[2022-10-04] MEDS: Insulin GLARGINE 100 un/ml 10 ml VIAL SUBCUT SCH (20:23)
[2022-10-05] MEDS ORDERED: Polyethylene Glycol 3350 17 GM PACKET PO SCH (09:00)
[2022-10-05] MEDS: Nystatin TOP POWDER 15 GM BTL TOPICAL SCH ×2 (09:59→14:25)
== END 2022-10-05 14:21 | disposition home or self-care (01) | DRG 466 ==
LOC: ED 16:32 → EDHOLD 19:16 → MED 23:47
PROVIDERS: ADMIT Internal Medicine; ATTEND Internal Medicine